=== PATIENT | male | born 1950 | race Caucasian/White ===

== ENCOUNTER → 2017-07-15 | Outpatient (CLI) | payer MEDICARE, MEDICAID, SELFPAY | PROVIDERS: Visit Provider Urology | DX: C61 Malignant neoplasm of prostate (principal); Z12.5 Encounter for screening for malignant neoplasm of prostate | CPT/HCPCS: 36415; 84153 ==

== ENCOUNTER 2017-07-21 10:23 | Outpatient (POV) | payer MEDICARE, MEDICAID, SELFPAY | END 2017-07-21 15:31 | disposition home or self-care (01) | PROVIDERS: Family Provider Family Medicine; PCP Family Medicine; Visit Provider Urology | DX: C61 Malignant neoplasm of prostate (principal) | CPT/HCPCS: 81002; 99213 ==

== ENCOUNTER → 2017-10-13 12:22 | Outpatient (CLI) | payer MEDICARE, MEDICAID, SELFPAY ==
[2017-10-13 14:17] LABS: Prostate Specific Ag Screen < 0.1 ng/mL (0.0-4.0)
== END ==
PROVIDERS: PCP Urology; Visit Provider Urology
DX: Z12.5 Encounter for screening for malignant neoplasm of prostate (principal)
CPT/HCPCS: 36415; G0103

== ENCOUNTER → 2018-01-13 09:47 | Outpatient (CLI) | payer MEDICARE, MEDICAID, SELFPAY ==
[2018-01-13 11:33] LABS: Prostate Specific Ag, Diagnost < 0.05 ng/mL (0.0-4.0)
== END ==
PROVIDERS: Visit Provider Urology
DX: C61 Malignant neoplasm of prostate (principal)
CPT/HCPCS: 36415; 84153

== ENCOUNTER → 2018-07-28 09:41 | Outpatient (CLI) | payer MEDICARE, MEDICAID, SELFPAY ==
[2018-07-28 11:35] LABS: Prostate Specific Ag, Diagnost < 0.05 ng/mL (0.0-4.0)
== END ==
PROVIDERS: Visit Provider Urology
DX: C61 Malignant neoplasm of prostate (principal)
CPT/HCPCS: 36415; 84153

== ENCOUNTER → 2019-01-25 09:03 | Outpatient (CLI) | payer MEDICARE, MEDICAID, SELFPAY ==
[2019-01-25 11:00] LABS: Prostate Specific Ag, Diagnost 0.04 ng/mL (0.0-4.0)
== END ==
PROVIDERS: Visit Provider Urology
DX: R97.20 Elevated prostate specific antigen [PSA] (principal)
CPT/HCPCS: 36415; 84153

== ENCOUNTER → 2019-07-26 12:14 | Outpatient (CLI) | payer MEDICARE, MEDICAID, SELFPAY ==
[2019-07-27 12:20] LABS: PSA, Free <0.01 ng/mL; Prostate Specific Ag <0.1 ng/mL (0.0-4.0)
== END ==
PROVIDERS: Visit Provider Urology
DX: R97.20 Elevated prostate specific antigen [PSA] (principal)
CPT/HCPCS: 36415; 84153; 84154

== ENCOUNTER → 2019-09-28 08:16 | Outpatient (CLI) | payer MEDICARE, MEDICAID, SELFPAY ==
--- NOTE | 2019-09-28 08:27 | XR_ITS ---
PROCEDURE: XR LUMBAR SPINE 6V W BENDING CLINICAL INDICATION: DDD W/ STENOSIS, LBP COMPARISON: ABDPELW/O CT ABD PELVIS W/O CONTRAST from 05/06/2016 FINDINGS: Mild lumbar scoliosis convex right. Facet arthritic changes are present from L3-L5. There is normal alignment. Mild degenerative disc disease is present in the lower thoracic spine. There is mild degenerative disc disease at L4-5. No acute fracture or dislocation. No lytic or blastic change. Flexion and extension views show no abnormal subluxation. There is mild wedge contour T12-T11 and T10 which is felt to be chronic Incidental note is made left nephrolithiasis with a 4 mm stone along the lower pole of the left kidney. There are multiple calcific densities overlying the lower pelvic region consistent with bladder calculi. Osteoarthritic changes are present in the right hip. The left hip is not well delineated. IMPRESSION: 1. Lumbar and thoracic spondylosis as detailed above 2. Left nephrolithiasis. 3. No abnormal subluxation in flexion or extension Dictated by: Teo You MD 09/28/2019 18:19 Electronically signed by Teo You MD in [facility] 09/28/2019 18:19
== END ==
PROVIDERS: PCP Family Medicine; Visit Provider Family Medicine
DX: M48.061 Spinal stenosis, lumbar region without neurogenic claudication (principal); M54.5 Low back pain
CPT/HCPCS: 72114

== ENCOUNTER → 2020-08-06 13:50 | Outpatient (CLI) | payer MEDICARE, MEDICAID, SELFPAY ==
[2020-08-06 15:59] LABS: Prostate Specific Ag, Diagnost < 0.064 ng/ml (0.0-4.0)
== END ==
PROVIDERS: Visit Provider Urology
DX: C61 Malignant neoplasm of prostate (principal)
CPT/HCPCS: 36415; 84153

== ENCOUNTER → 2021-01-07 10:03 | Outpatient (CLI) | payer MEDICARE, MEDICAID, SELFPAY ==
[2021-01-07 12:08] LABS: Blood Urea Nitrogen 21 mg/dl (9-20); Estimated Glomerular Filt Rate 66 ml/min (>60); GFR (African American) 80 ML/MIN (>60)
== END ==
PROVIDERS: Visit Provider Surgery
DX: R10.32 Left lower quadrant pain (principal)
CPT/HCPCS: 36415; 82565; 84520

== ENCOUNTER → 2021-01-11 12:41 | Outpatient (CLI) | payer MEDICARE, MEDICAID, SELFPAY ==
--- NOTE | 2021-01-11 12:42 | CT_ITS ---
PROCEDURE: CT PELVIS WO/W CON CLINICAL INDICATION: lt groin pain, possible hernia COMPARISON: CT ABDPELW/O CT ABD PELVIS W/O CONTRAST from 05/06/2016 TECHNIQUE: Axial images obtained with sagittal and coronal reformats. All CT scans at the facility use one or more dose reduction, viz: automated exposure control, ma/kV adjustment per patient size (including targeted exams where dose is matched to indication, i.e. head), or iterative reconstruction technique. FINDINGS: Current CT shows a structure in the left inguinal canal, which projects off the lateral aspect of sigmoid colon which was previously shown to be of fluid density. This structure now measures about 5 centimeters x 3 centimeters and contains multiple foci of air and a tiny amount of fluid. Findings are most consistent with a diverticular abscess. This structure does not contain bowel and is separate from the sigmoid colon itself. There is no free intraperitoneal air. Small amount of nonspecific free fluid in the pelvis. Multiple diverticula noted on the sigmoid and descending colon. There is some calcification of the visualized abdominal aorta without aneurysm. A few right renal cortical cysts again noted. 8 millimeter non-obstructing stone in the left kidney. No distended small bowel. Postop changes of prior prostatectomy. Several bladder stones are present in the base of the urinary bladder on the left, the largest measuring about 7 millimeters. Moderate amount of stool in the colon. IMPRESSION: Current exam shows a structure in the left inguinal canal projecting off the left lateral aspect of the sigmoid colon as described above, most consistent with a diverticular abscess. Multiple diverticula on the sigmoid and descending colon. Small amount of nonspecific free fluid in the pelvis. No free intraperitoneal air. A few right renal cortical cysts. 8 millimeter non-obstructing stone in the left kidney. Several bladder stones, the largest measuring about 7 millimeters. Findings were discussed by telephone with Dr. Myers on 01/11/2021 at approximately 1410 hours. Dictated by: Oh Michelle MD 01/11/2021 14:43 Oh Michelle MD in [facility] 01/11/2021 14:43
== END ==
PROVIDERS: PCP Family Medicine; Visit Provider Surgery
DX: R10.32 Left lower quadrant pain (principal)
CPT/HCPCS: 72194; Q9967

== ENCOUNTER → 2021-01-16 09:59 | Outpatient (CLI) | payer MEDICARE, MEDICAID, SELFPAY ==
[2021-01-16 10:28] LABS: Basophils # 0.1 K/mm3 (0-0.2); Basophils % 0.5 % (0.1-2.0); Eosinophils # 0.2 K/mm3 (0.0-0.4); Eosinophils % 1.8 % (0.1-12.0); Hematocrit 38.1 % (42.0-52.0); Hemoglobin 12.1 g/dL (14.1-18.0); Lymphocytes # 1.5 K/mm3 (0.7-4.5); Lymphocytes % 13.9 % (10-50); Mean Corpuscular HGB Conc 31.8 g/dL (31.8-35.4); Mean Corpuscular Hemoglobin 27.8 pg (27.0-31.2); Mean Corpuscular Volume 87.4 fl (80-94); Mean Platelet Volume 7.1 fl (7.4-10.4); Monocytes # 0.7 K/mm3 (0.1-1.0); Monocytes % 6.1 % (1.7-9.3); Neutrophils # 8.5 K/mm3 (1.8-7.8); Neutrophils % 77.7 % (37.0-80.0); Platelet Count 575 K/mm3 (142-424); Red Blood Count 4.36 M/mm3 (4.60-6.20); Red Cell Distribution Width 15.6 % (11.5-17.5)
[2021-01-16 10:54] LABS: Erythrocyte Sedimentation Rate 22 mm/hr (0-20)
[2021-01-16 11:14] LABS: C-Reactive Protein 15.5 mg/L (0-4)
== END ==
PROVIDERS: Visit Provider Surgery
DX: L02.91 Cutaneous abscess, unspecified (principal)
CPT/HCPCS: 85025; 85651; 86140

== ENCOUNTER → 2021-01-23 09:04 | Outpatient (CLI) | payer MEDICARE, MEDICAID, SELFPAY ==
[2021-01-23 09:18] LABS: Basophils % 0.3 % (0.1-2.0); Eosinophils # 0.3 K/mm3 (0.0-0.4); Eosinophils % 2.5 % (0.1-12.0); Hematocrit 37.3 % (42.0-52.0); Hemoglobin 11.8 g/dL (14.1-18.0); Lymphocytes # 1.4 K/mm3 (0.7-4.5); Lymphocytes % 12.1 % (10-50); Mean Corpuscular HGB Conc 31.6 g/dL (31.8-35.4); Mean Corpuscular Hemoglobin 27.9 pg (27.0-31.2); Mean Corpuscular Volume 88.4 fl (80-94); Mean Platelet Volume 7.5 fl (7.4-10.4); Monocytes # 0.9 K/mm3 (0.1-1.0); Monocytes % 7.3 % (1.7-9.3); Neutrophils # 9.1 K/mm3 (1.8-7.8); Neutrophils % 77.8 % (37.0-80.0); Platelet Count 547 K/mm3 (142-424); Red Blood Count 4.21 M/mm3 (4.60-6.20); White Blood Count 11.6 K/mm3 (4.8-10.8)
== END ==
PROVIDERS: Visit Provider Surgery
DX: L02.91 Cutaneous abscess, unspecified (principal)
CPT/HCPCS: 36415; 85025

== ENCOUNTER → 2021-02-05 11:39 | Outpatient (CLI) | payer MEDICARE, MEDICAID, SELFPAY ==
[2021-02-05 12:57] LABS: Blood Urea Nitrogen 15 mg/dl (9-20); Estimated Glomerular Filt Rate 95 ml/min (>60); GFR (African American) 115 ML/MIN (>60)
== END ==
PROVIDERS: Visit Provider Surgery
DX: Z01.812 Encounter for preprocedural laboratory examination (principal)
CPT/HCPCS: 36415; 82565; 84520

== ENCOUNTER → 2021-02-06 09:33 | Outpatient (CLI) | payer MEDICARE, MEDICAID, SELFPAY ==
--- NOTE | 2021-02-06 09:33 | CT_ITS ---
PROCEDURE: CT ABDOMEN PELVIS W CON CLINICAL INDICATION: Possible diverticulitis abscess vs mesh infections COMPARISON: CT ABDPELW/O CT ABD PELVIS W/O CONTRAST from 05/06/[address] PELVIS WO/W CON from 01/11/2021 TECHNIQUE: IV Contrast: 75ML Isovue 370 Oral Contrast None Axial images obtained with sagittal and coronal reformats. All CT scans at the facility use one or more dose reduction, viz: automated exposure control, ma/kV adjustment per patient size (including targeted exams where dose is matched to indication, i.e. head), or iterative reconstruction technique. FINDINGS: LOWER THORAX: Coronary artery calcification noted. There is minimal pericardial thickening posteriorly ABDOMEN & PELVIS: The liver, spleen, adrenal glands, pancreas, have an unremarkable appearance. There are bilateral renal cysts the largest on the right at 4.5 cm. An 8 mm stone is present in the lower pole of the left kidney. 3 mm stone is present in the mid polar region of the right kidney. No ureteral calculi. No hydronephrosis. There are several bladder calculi present. No intestinal obstruction or free air is apparent. No evidence of appendicitis. There is colonic diverticulosis. Once again there is noted complex structure projecting off of the anterior left lateral aspect of the sigmoid colon in the left groin region and extending into the inguinal canal. This has mixed soft tissue and gas density with a mildly thickened wall measuring up to 6 mm consistent with an abscess which may be a Magalis diverticular abscess. This extends into the left inguinal canal with some mild stranding of the fat around this abnormality. This is not significantly changed in size measuring up to 6 cm in maximum longitudinal dimension and 2.5 cm transverse. This is contiguous with the sigmoid colon and also contiguous with the left anterior aspect of the urinary bladder. The pelvic fluid has resolved compared to the previous exam No acute bony findings. IMPRESSION: Overall no significant change in what appears to represent a para diverticular abscess projecting off the sigmoid colon into the left inguinal region. This could also represent a mesh abscess with extension to the sigmoid region. The abscess also abuts the anterior medial aspect of the urinary bladder. Colonic diverticulosis Bilateral renal calculi and urinary bladder calculi. Dictated by: Teo You MD 02/06/2021 11:33 Teo You MD in [facility] 02/06/2021 11:33
== END ==
PROVIDERS: PCP Family Medicine; Visit Provider Surgery
DX: R93.5 Abnormal findings on diagnostic imaging of other abdominal regions, including retroperitoneum (principal)
CPT/HCPCS: 74177; Q9967

== ENCOUNTER → 2021-05-29 14:11 | Outpatient (CLI) | payer MEDICARE, MEDICAID, SELFPAY ==
[2021-05-29 15:08] LABS: Anion Gap 8.8 mEq/L (5-15); Blood Urea Nitrogen 8 mg/dl (9-20); Calcium 9.1 mg/dl (8.4-10.2); Carbon Dioxide 28 mmol/L (22.0-30.0); Chloride 108 mmol/L (98-107); Estimated Glomerular Filt Rate 59 ml/min (>60); GFR (African American) 72 ML/MIN (>60); Glucose 92 mg/dl (74-100); Potassium 4.8 mmoL/L (3.5-5.1); Sodium 140 mmol/L (136-145)
== END ==
PROVIDERS: Visit Provider Internal Medicine Geriatric Medicine
DX: K85.92 Acute pancreatitis with infected necrosis, unspecified (principal); L89.152 Pressure ulcer of sacral region, stage 2
CPT/HCPCS: 80048

== ENCOUNTER 2021-06-17 14:22 | Observation (INO) | payer MEDICARE, MEDICAID, SELFPAY ==
[2021-06-17] VITALS (10 sets, daily range): BP systolic 96–145; BP diastolic 56–91; PULSE 86–116; RESP 18; TEMP 36.6–36.9; O2SAT 96–99; BMI 21.5; BMI 22.1
--- NOTE | 2021-06-17 15:03 | CT_ITS ---
PROCEDURE INFORMATION: Exam: CT Abdomen And Pelvis With Contrast Exam date and time: 06/17/2021 3:03 PM Age: 71 years old Clinical indication: Abdominal pain; Generalized; Additional info: Abd pain TECHNIQUE: Imaging protocol: Computed tomography of the abdomen and pelvis with contrast. Radiation optimization: All CT scans at this facility use at least one of these dose optimization techniques: automated exposure control; mA and/or kV adjustment per patient size (includes targeted exams where dose is matched to clinical indication); or iterative reconstruction. Contrast material: ISOVUE; Contrast volume: 70 ml; Contrast route: IV; COMPARISON: CT ABDOMEN PELVIS W CON 02/06/2021 9:51 AM FINDINGS: Liver: Normal. No mass. Gallbladder and bile ducts: Normal. No calcified stones. No ductal dilation. Pancreas: Normal. No ductal dilation. Spleen: Normal. No splenomegaly. Adrenal glands: Normal. No mass. Kidneys and ureters: 10 x 8 x 8 mm stone in the mid to distal left ureter. Moderate hydronephrosis. Again noted are simple renal cortical cysts. Stomach and bowel: An anastomosis at the rectosigmoid junction is new since the previous study. There is much less diverticular disease present as compared to the prior study. Inflammatory mural thickening of the colon are new. Findings are present from cecum to rectum. Appendix: No evidence for appendicitis. Intraperitoneal space: Small amount of free fluid in the abdomen and pelvis. Vasculature: Unremarkable. No abdominal aortic aneurysm. Lymph nodes: Unremarkable. No enlarged lymph nodes. Urinary bladder: Again noted are several bladder stones. The bladder is decompressed with a Gilman catheter. Reproductive: Unremarkable as visualized. Bones/joints: Unremarkable. No acute fracture. Soft tissues: Unremarkable. IMPRESSION: 1. Diffuse inflammatory changes of the colon. Findings may represent infectious colitis or inflammatory bowel disease. 2. Large stone in the mid to distal left ureter with hydronephrosis.
[2021-06-17 15:24] LABS: Basophils # 0.1 K/mm3 (0-0.2); Basophils % 0.5 % (0.1-2.0); Eosinophils # 0.1 K/mm3 (0.0-0.4); Eosinophils % 0.4 % (0.1-12.0); Hematocrit 37.4 % (42.0-52.0); Hemoglobin 11.5 g/dL (14.1-18.0); Lymphocytes # 1.3 K/mm3 (0.7-4.5); Mean Corpuscular HGB Conc 30.8 g/dL (31.8-35.4); Mean Corpuscular Hemoglobin 29.3 pg (27.0-31.2); Mean Platelet Volume 8.3 fl (7.4-10.4); Monocytes # 0.7 K/mm3 (0.1-1.0); Monocytes % 3.7 % (1.7-9.3); Neutrophils # 16.2 K/mm3 (1.8-7.8); Neutrophils % 88.4 % (37.0-80.0); Red Blood Count 3.93 M/mm3 (4.60-6.20); Red Cell Distribution Width 17.1 % (11.5-17.5); White Blood Count 18.3 K/mm3 (4.8-10.8)
[2021-06-17 15:25] LABS: Platelet Count 1005 K/mm3 (142-424)
[2021-06-17 15:27] LABS: Microscopic, Urine URINE MICROSCOPIC (MICROSCOPIC)
[2021-06-17 15:27] LABS: MANUAL DIFFERENTIAL MANUAL DIFFERENTIAL (MANUAL DIFF)
[2021-06-17 15:28] LABS: Alanine Aminotransferase 7 U/L (12-78); Albumin Level 2.5 g/dl (3.5-5.0); Albumin/Globulin Ratio 0.8 (1.1-1.8); Alkaline Phosphatase 235 U/L (38-126); Amylase 35 U/L (30-110); Anion Gap 9.8 mEq/L (5-15); Aspartate Amino Transferase 34 U/L (17-59); Bilirubin,Total 0.8 mg/dl (0.2-1.3); Blood Urea Nitrogen 30 mg/dl (9-20); Carbon Dioxide 22 mmol/L (22.0-30.0); Chloride 108 mmol/L (98-107); Creatinine Clearance Estimated 36 mL/min (50-200); Estimated Glomerular Filt Rate 50 ml/min (>60); GFR (African American) 60 ML/MIN (>60); Glucose 99 mg/dl (74-100); Lipase 20 U/L (23-300); Potassium 4.8 mmoL/L (3.5-5.1); Sodium 135 mmol/L (136-145); Total Protein,Serum 5.5 g/dl (6.3-8.2)
[2021-06-17 15:28] LABS: Appearance,Urine CLEAR (Clear); Bilirubin,Urine Negative (Negative); Blood, Urine Negative (Negative); Color,Urine DK YELLOW (Yellow); Glucose,Urine (UA) Negative (Negative); Ketones,Urine Negative (Negative); Leukocyte Esterase,Urine TRACE (Negative); Nitrate,Urine Negative (Negative); PH,Urine 5.5 (5.0-8.5); Protein,Urine Negative (Negative); Specific Gravity, Urine 1.025 (1.005-1.030); Urobilinogen,Urine 0.2 EU/dl (0.2)
[2021-06-17 15:42] LABS: Bacteria,Urine Trace /lpf; Squamous Epithelial Cell,Urine Occasional #/hpf (0-5)
--- NOTE | 2021-06-17 15:44 | PC.NURSE ---
Pt to CT
[2021-06-17 15:55] LABS: Hypochromasia 2+; Lymphocytes % 11 % (10-50); Monocytes % 6 % (2-9); Neutrophils % 80 % (42-76); Platelet Estimate Marked Increase; Total Cells Counted 100
[2021-06-17 15:56] LABS: Erythrocyte Sedimentation Rate 18 mm/hr (0-20)
--- NOTE | 2021-06-17 18:04 | PC.NURSE ---
Stage 3 bed sore noted to coccyx.
--- NOTE | 2021-06-17 19:51 | HMH.EDGENADL ---
ED Disposition Clinical Impression: Ureteral stone with hydronephrosis, Thrombocythemia, Colitis Disposition: Admitted As Inpatient Condition on Discharge: Fair - Critical Care Critical Care Time: No Attestation: On 06/17/21, the high probability of a clinically significant, sudden or life threatening deterioration of the following system(s) required my full and direct attention, intervention and personal management. The time I documented below is in addition to time spent performing reported procedures but includes the following listed in this critical care notation. Medical Decision Making - Chaz Inquiry Pt receiving controlled substance: No Vital Signs: 06/17/21 15:00 Pulse Rate [Apical] 116 H Respiratory Rate 18 Blood Pressure [Right Arm] 145/72 H Blood Pressure Mean [Right Arm] 96 02 Sat by Pulse Oximetry 96 - Lab Data Lab Results 06/17/21 15:12: WBC 18.3 H, RBC 3.93 L, Hgb 11.5 L, Hct 37.4 L, MCV 95.0 H, MCH 29.3, MCHC 30.8 L, RDW 17.1, Plt Count 1005 H*, MPV 8.3, Neut % (Auto) 88.4 H, Lymph % (Auto) 7.0 L, [place] % (Auto) 3.7, Eos % (Auto) 0.4, Baso % (Auto) 0.5, Neut # (Auto) 16.2 H, Lymph # (Auto) 1.3, [place] # (Auto) 0.7, Eos # (Auto) 0.1, Baso # (Auto) 0.1, Total Counted 100, Neutrophils % (Manual) 80 H, Band Neutrophils % 3.0, Lymphocytes % (Manual) 11, Monocytes % (Manual) 6, Platelet Estimate Marked increase, Hypochromasia 2+ 06/17/21 15:12: Sodium 135 L, Potassium 4.8, Chloride 108 H, Carbon Dioxide 22, Anion Gap 9.8, BUN 30 H, Creatinine 1.40 H, Estimated Creat Clear 36, Estimated GFR 50 L, Est GFR ( Amer) 60, Glucose 99, Calcium 9.0, Total Bilirubin 0.8, AST 34, ALT 7 L, Alkaline Phosphatase 235 H, C-Reactive Protein 79.0 H, Total Protein 5.5 L, Albumin 2.5 L, Globulin 3.0, Albumin/Globulin Ratio 0.8 L, Amylase 35, Lipase 20 L 06/17/21 15:12: ESR 18 06/17/21 15:21: Urine Color Dk yellow, Urine Appearance Clear, Urine pH 5.5, Ur Specific [place] 1.025, Urine Protein Negative, Urine Glucose (UA) Negative, Urine Ketones Negative, Urine Blood Negative, Urine Nitrate Negative, Urine Bilirubin Negative, Urine Urobilinogen 0.2, Ur Leukocyte Esterase Trace, Urine WBC 10-20, Ur Squamous Epith Cells Occasional, Urine Bacteria Trace Result diagrams: 06/17/21 15:12 06/17/21 15:12 Orders (Tests/Meds): ED MEDICATIONS Generic Name Dose Route Start Last Admin Trade Name Freq PRN Reason Stop Dose Admin Piperacillin Sod/Tazobactam 50 mls @ 100 mls/hr 06/17/21 18:45 06/17/21 19:34 Sod 3.375 gm/ Sodium Chloride IV 07/01/21 18:44 100 mls/hr Q8H TRUMAN Administration Discontinued Medications Generic Name Dose Route Start Last Admin Trade Name Freq PRN Reason Stop Dose Admin Sodium Chloride 1,000 mls @ 999 mls/hr 06/17/21 15:15 06/17/21 15:41 Sod Chlor 0.9% 1000ml Bag IV 06/17/21 16:15 999 mls/hr .Q1H1M TRUMAN Administration Metronidazole 500 mg in 100 mls @ 100 mls/hr 06/17/21 18:43 06/17/21 19:19 Flagyl 500mg/100ml Ivpb IV 06/17/21 19:42 100 mls/hr ONCE ONE Administration Iopamidol 75 ml 06/17/21 15:51 06/17/21 15:52 Iopamidol-370 (76%);100ml Bottle IV 06/17/21 15:52 75 ml ONCE ONE Administration Sodium Chloride 10 ml 06/17/21 15:51 06/17/21 15:52 Sodium Chloride 0.9% 10ml Syr (Rad Only) IV 06/17/21 15:52 10 ml ONCE ONE Administration ORDERS Category Date Time Status Urine Culture Stat Micro 06/17/21 15:21 Received Medical Decision Narrative: DDx includes but not limited to pancreatitis, intraabdominal infection, ДМИТРИЙ, electrolyte abnormality. HDS, NAD, tired appearing. GCS 15. Tachycardic, afebrile. Given IVF bolus here in ED with improvement of tachycardia. wbc 18k. Of note, plt 1005k. CT shows diffuse colonic wall thickening/colitis, and left ureteral stone causing hydronephrosis. Creatinine 1.4. Given zosyn and flagyl here for intraabdominal infection. In NAD on reassessment. Urology consulted regarding ureteral stone with hydron
--- NOTE | 2021-06-17 23:04 | PC.NURSE ---
Report called to [facility] at this time
--- NOTE | 2021-06-17 23:48 | PC.NURSE ---
patient up to floor via stretcher @ this time.
[2021-06-18] VITALS (26 sets, daily range): BP systolic 89–115; BP diastolic 52–73; PULSE 83–109; RESP 14–17; TEMP 36.3–43; O2SAT 93–100; BMI 22.1
[2021-06-18 00:18] LABS: Coronavirus 19, PCR Not Detected (NotDetected); Influenza A, PCR Not Detected (NotDetected); Influenza B, PCR Not Detected (NotDetected)
--- NOTE | 2021-06-18 00:57 | PC.WOUNDNOTE ---
stage 2 to coccyx
--- NOTE | 2021-06-18 05:07 | PC.NURSE ---
pt admitted this shift, noted pt with loose watery stools and incontinent, pt uses brief. pt arrived with a stage 2 decubitis ulcer to coccyx area, pictures taken, pt complains of abdominal tenderness, f/c to bsd. VSS, consult with urology relating to renal calculi today.
--- NOTE | 2021-06-18 07:32 | HMH.HP ---
*Admission Date: 06/18/21 *Chief complaint: Abdominal pain *History of present illness: 71-year-old male presented to the emergency department for increasing left lower quadrant abdominal pain as well as a milder pain in the epigastrium. Patient been experiencing this pain for several weeks and this was believed to be related to recent surgery to remove mesh from the left inguinal area that had developed an abscess. This surgery was in mid March and was complicated by development of pleural effusions postoperatively and C. difficile colitis. Initial surgery was at the [facility] and subsequent hospitalization was also at [facility] where he had chest tubes and completed a 6 weeks course of vancomycin for his C. difficile. Patient rehabilitated at [facility] before returning home. Patient has been having left lower quadrant pain this entire time although the pain has gradually increased. He presented to the emergency department. He denied hematuria. Patient does report multiple small loose stools daily. He denies fevers or chills. In the emergency department a CT scan showed inflammatory changes of the colon consistent with colitis and an obstructing left ureteral stone. Patient was admitted after being given IV antibiotics and urologic consultation has been ordered. [facility] History I have reviewed the patient's past medical history: Yes Medical History: Reports:: Cancer, Hyperlipidemia, Hypertension Denies:: Diabetes Mellitus Type 1, Diabetes Mellitus Type 2, MRSA *Have you ever received a pneumonia vaccine?: Yes *Have you received a flu vaccine this season?: Yes Other Medical History: Reports: Arthritis, Thyroid Disease Other Surgeries: Yes: Colonoscopy, Hernia Repair, Ureter Stent, Other (Left inguinal mesh removal) Amputation: No Fractures: No - *Social History Last grade of school completed: 7th or 8th Smoking Status: Never smoker Tobacco Type: smokeless tobacco Alcohol Intake: never Substance Use Type: denies use *Occupational Status:: retired Household Members: spouse *Travel in the last 8 weeks: None Family Hx:: No significant family history Review of Systems - Constitutional Reports anorexia, Reports lack of energy - Eyes Denies change in vision - ENT Denies bleeding gums, Denies ear discharge - *Cardiovascular Denies chest pain at rest, Denies chest pain with activity - *Respiratory Denies chest congestion, Denies cough, Denies shortness of breath - *Gastrointestinal Denies belching, Denies bloating, Denies heartburn - *Genitourinary Denies blood in urine - *Musculoskeletal Reports joint pain - Integumentary/Breasts Reports bleeding lesions Meds Home Medications Medication Instructions Recorded Confirmed Type aspirin 81 mg tablet,delayed 81 mg PO DAILY tab 10/20/17 06/18/21 History release fenofibrate nanocrystallized 145 145 mg PO DAILY tab 10/20/17 06/18/21 History mg tablet lisinopril 40 mg tablet 40 mg PO DAILY tab 10/20/17 06/18/21 History meloxicam 15 mg tablet 15 mg PO DAILY tab 10/20/17 06/18/21 History multivit and minerals-ferrous 15 ml PO QHS 10/20/17 06/18/21 History gluconate 9 mg iron/15 mL oral liquid levothyroxine 88 mcg tablet 88 mcg PO DAILY tab 08/06/20 06/18/21 History Allergies Allergy/AdvReac Type Severity Reaction Status Date / Time Sulfa (Sulfonamide Allergy Unknown Verified 06/18/21 00:35 Antibiotics) Exam Vital signs and Labs for Last 24 Hours: Temp Pulse Resp BP Pulse Ox 98.4 F 89 16 108/66 L 93 L 06/18/21 03:59 06/18/21 03:59 06/18/21 03:59 06/18/21 03:59 06/18/21 03:59 Laboratory Results - last 24 hr 06/17/21 00:12: SARS-CoV-2 (PCR) Not detected, Influenza A Untype (PCR) Not detected, Influenza Type B (PCR) Not detected 06/17/21 15:12: WBC 18.3 H, RBC 3.93 L, Hgb 11.5 L, Hct 37.4 L, MCV 95.0 H, MCH 29.3, MCHC 30.8 L, RDW 17.1, Plt Count 1005 H*, MPV 8.3, Neut % (Auto) 88.4 H, L
[2021-06-18 07:44] LABS: Adenovirus F 40/41, stool Not Detected (NotDetected); Astrovirus Not Detected (NotDetected); Campylobacter Not Detected (NotDetected); Cryptosporidium Not Detected (NotDetected); Cyclospora Cayetanesis Not Detected (NotDetected); Entamoeba histolytica Not Detected (NotDetected); Enteroaggregative E coli Not Detected (NotDetected); Enteropathogenic E coli Not Detected (NotDetected); Enterotoxigenic E coli Not Detected (NotDetected); Giardia lamblia Not Detected (NotDetected); Norovirus Not Detected (NotDetected); Plesimonas Shigalloides, PCR Not Detected (NotDetected); Rotavirus A Not Detected (NotDetected); Salmonella, PCR Not Detected (NotDetected); Sapovirus Not Detected (NotDetected); Shiga-like toxin E coli Not Detected (NotDetected); Shigella Enterovasive E coli Not Detected (NotDetected); Vibrio Cholerae Not Detected (NotDetected); Vibrio, PCR Not Detected (NotDetected); Yersinia Entercolitica, PCR Not Detected (NotDetected)
--- NOTE | 2021-06-18 07:44 | HMH.PHAVTE ---
[facility] Pharmacy VTE Monitoring - Patient Demographics Admission date: 06/18/21 Report Date: 06/18/21 Time: 07:44 Allergies/Adverse Reactions: Patient Allergies Sulfa (Sulfonamide Antibiotics) Allergy (Unknown, Verified 06/18/21 00:35) Height: 1.57 m Weight: 54.522 kg Patient Problems: Current Active Problems Ureteral stone with hydronephrosis (Acute) Thrombocythemia (Acute) Colitis (Acute) - VTE Risk Labs: VTE Related Lab Results Hgb 11.5 g/dL (14.1-18.0) L 06/17/21 15:12 Hct 37.4 % (42.0-52.0) L 06/17/21 15:12 Plt Count 1005 K/mm3 (142-424) H* 06/17/21 15:12 BUN 30 mg/dl (9-20) H 06/17/21 15:12 Creatinine 1.40 mg/dl (0.66-1.25) H 06/17/21 15:12 Estimated Creat Clear 36 mL/min (50-200) 06/17/21 15:12 Was VTE Risk Assessment Performed: Yes VTE Score: 5 VTE Risk Level: Low Risk Clinical Trial Participant: No - Prophylaxis VTE Prophylaxis Ordered?: Yes Types of VTE Prophylaxis: TEDS Knee High Location of Applied Device: Bilateral Lower Extremeties
[2021-06-18 08:46] LABS: Basophils % 0.3 % (0.1-2.0); Eosinophils % 0.1 % (0.1-12.0); Hematocrit 34.9 % (42.0-52.0); Hemoglobin 10.6 g/dL (14.1-18.0); Lymphocytes % 8.6 % (10-50); Mean Corpuscular HGB Conc 30.2 g/dL (31.8-35.4); Mean Corpuscular Volume 95.8 fl (80-94); Mean Platelet Volume 8.7 fl (7.4-10.4); Monocytes # 0.5 K/mm3 (0.1-1.0); Monocytes % 4.1 % (1.7-9.3); Neutrophils # 10.2 K/mm3 (1.8-7.8); Neutrophils % 86.9 % (37.0-80.0); Platelet Count 929 K/mm3 (142-424); Red Blood Count 3.65 M/mm3 (4.60-6.20); Red Cell Distribution Width 17.3 % (11.5-17.5); White Blood Count 11.8 K/mm3 (4.8-10.8)
[2021-06-18 08:54] LABS: MANUAL DIFFERENTIAL MANUAL DIFFERENTIAL (MANUAL DIFF)
[2021-06-18 09:04] LABS: Albumin/Globulin Ratio 0.7 (1.1-1.8); Alkaline Phosphatase 198 U/L (38-126); Anion Gap 10.5 mEq/L (5-15); Aspartate Amino Transferase 27 U/L (17-59); Bilirubin,Total 0.7 mg/dl (0.2-1.3); Blood Urea Nitrogen 25 mg/dl (9-20); Calcium 8.5 mg/dl (8.4-10.2); Carbon Dioxide 20 mmol/L (22.0-30.0); Chloride 111 mmol/L (98-107); Creatinine Clearance Estimated 34 mL/min (50-200); Estimated Glomerular Filt Rate 46 ml/min (>60); GFR (African American) 56 ML/MIN (>60); Globulin 2.7 g/dL (1.3-3.2); Glucose 65 mg/dl (74-100); Potassium 4.5 mmoL/L (3.5-5.1); Sodium 137 mmol/L (136-145); Total Protein,Serum 4.7 g/dl (6.3-8.2)
[2021-06-18 09:11] LABS: Alanine Aminotransferase < 4 U/L (12-78)
[2021-06-18 09:29] LABS: Anisocytosis 1+; Lymphocytes % 8 % (10-50); Monocytes % 5 % (2-9); Neutrophils % 87 % (42-76); Platelet Estimate Normal; Total Cells Counted 100
[2021-06-18 09:30] LABS: Hypochromasia 2+; Macrocytosis 1+
--- NOTE | 2021-06-18 09:50 | HMH.PHAINT ---
clarified home med list using list from Dr Munguia' office and [facility]
[2021-06-18 09:55] LABS: Clostridium Difficile A/B, PCR Detected (NotDetected)
--- NOTE | 2021-06-18 10:21 | PC.NURSE ---
SPOKE WITH KEITH HILL IN PRE-OP REGARDING PT GLUCOSE LEVEL. ORDER PER ANESTHESIA TO GIVE HALF CUP OF JUICE AT THIS TIME.
--- NOTE | 2021-06-18 11:50 | HMH.CONS ---
*Admission Date: 06/18/21 *Reason for consult:: Left ureteral stone with obstruction *History of present illness: Patient is a 71-year-old white female with history of prostate cancer and colon cancer phlebitis recent prolonged hospitalization for complications of left inguinal mesh explantation. Into the emergency room last evening complaints of left lower quadrant pain. Patient gives a several week history of the left lower quadrant pain. He had a prolonged hospital stay at [facility] for complications after removing some mesh from the previous hernia repair. He had a coronal peel before returning home. Patient has had some associated nausea. A CT scan shows a 10 x 8 mm stone in the mid ureter with moderate hydronephrosis. There is also diffuse inflammatory changes of the colon. Patient's white count is elevated to 18.3. Creatinine is elevated to 1.4. Patient had his prostate removed for prostate cancer several years ago with PSAs of 0. [facility] History Medical History: Reports:: Cancer, Hyperlipidemia, Hypertension Denies:: Diabetes Mellitus Type 1, Diabetes Mellitus Type 2, MRSA *Have you ever received a pneumonia vaccine?: Yes *Have you received a flu vaccine this season?: Yes Other Medical History: Reports: Arthritis, Thyroid Disease Other Surgeries: Yes: Colonoscopy, Hernia Repair, Ureter Stent, Other (Left inguinal mesh removal) Amputation: No Fractures: No - *Social History Last grade of school completed: 7th or 8th Smoking Status: Never smoker Tobacco Type: smokeless tobacco Alcohol Intake: never Substance Use Type: denies use *Occupational Status:: retired Household Members: spouse *Travel in the last 8 weeks: None Family Hx:: No significant family history Review of Systems - Review of Systems Review of systems:: pertinent systems reviewed and negative unless documented below Meds Home Medications Medication Instructions Recorded Confirmed Type aspirin 81 mg tablet,delayed 81 mg PO DAILY tab 10/20/17 06/18/21 History release fenofibrate nanocrystallized 145 145 mg PO DAILY tab 10/20/17 06/18/21 History mg tablet meloxicam 15 mg tablet 15 mg PO DAILY tab 10/20/17 06/18/21 History levothyroxine 88 mcg tablet 88 mcg PO DAILY tab 08/06/20 06/18/21 History Amlodipine Besylate/Benazepril 1 cap PO DAILY 06/18/21 06/18/21 History [Amlodipine-Benazepril 5-40 mg] Lactobacillus Acidophilus/Fos 1 tab PO DAILY 06/18/21 06/18/21 History [Acidophilus Probiotic Tablet] Pnv No.95/Ferrous Fum/Folic AC 1 tab PO HS 06/18/21 06/18/21 History [ Caplet] Tamsulosin HCl [Flomax 0.4mg 0.4 mg PO HS 06/18/21 06/18/21 History capsule] Allergies Allergy/AdvReac Type Severity Reaction Status Date / Time Sulfa (Sulfonamide Allergy Unknown Verified 06/18/21 00:35 Antibiotics) Exam Vital signs and Labs for Last 24 Hours: Temp Pulse Resp BP Pulse Ox 98.0 F 84 14 115/60 97 06/18/21 08:00 06/18/21 08:00 06/18/21 08:00 06/18/21 08:00 06/18/21 08:00 Laboratory Results - last 24 hr 06/17/21 00:12: SARS-CoV-2 (PCR) Not detected, Influenza A Untype (PCR) Not detected, Influenza Type B (PCR) Not detected 06/17/21 15:12: WBC 18.3 H, RBC 3.93 L, Hgb 11.5 L, Hct 37.4 L, MCV 95.0 H, MCH 29.3, MCHC 30.8 L, RDW 17.1, Plt Count 1005 H*, MPV 8.3, Neut % (Auto) 88.4 H, Lymph % (Auto) 7.0 L, [place] % (Auto) 3.7, Eos % (Auto) 0.4, Baso % (Auto) 0.5, Neut # (Auto) 16.2 H, Lymph # (Auto) 1.3, [place] # (Auto) 0.7, Eos # (Auto) 0.1, Baso # (Auto) 0.1, Total Counted 100, Neutrophils % (Manual) 80 H, Band Neutrophils % 3.0, Lymphocytes % (Manual) 11, Monocytes % (Manual) 6, Platelet Estimate Marked increase, Hypochromasia 2+ 06/17/21 15:12: Sodium 135 L, Potassium 4.8, Chloride 108 H, Carbon Dioxide 22, Anion Gap 9.8, BUN 30 H, Creatinine 1.40 H, Estimated Creat Clear 36, Estimated GFR 50 L, Est GFR ( Amer) 60, Glucose 99, Calcium 9.0, Total Bilirubin 0.8, AST 34, ALT 7 L, Alkaline Ph
--- NOTE | 2021-06-18 12:01 | HMH.ANESCL ---
[facility] Anesthesia Checklist - Patient Identification Patient Identification: Arm Band, Verbal (Name & ) - Structural Data Admitted From: Inpatient Planned Operative Procedure/s: Left Ureteroscopy Consent for Planned Operative Procedure(s) Verified: Yes Verified Documents: Surgical Consent - NPO Status Verified Time NPO: 09:00 - Chart Verification Results Verified: CBC, BMP - Cardiovascular Assessment Heart Sounds: S1 & S2 - Airway Assessment C-Spine Mobility Assessed: Yes TMJ Mobility Assessed: Yes Dentition: Partials - Neurological Assessment Level of Consciousness: Awake, Alert, Appropriate - Anesthesia Plan Anesthesia Risk discussed: Yes ASA Class: III Anesthesia Type: General [facility] History I have reviewed the patient's past medical history: Yes Medical History: Reports:: Cancer, Hyperlipidemia, Hypertension Denies:: Diabetes Mellitus Type 1, Diabetes Mellitus Type 2, MRSA *Have you ever received a pneumonia vaccine?: Yes *Have you received a flu vaccine this season?: Yes Other Medical History: Reports: Arthritis, Thyroid Disease Anesthesia experience/problems:: none Other Surgeries: Yes: Colonoscopy, Hernia Repair, Ureter Stent, Other (Left inguinal mesh removal) Amputation: No Fractures: No - *Social History Last grade of school completed: 7th or 8th Smoking Status: Never smoker Tobacco Type: smokeless tobacco Alcohol Intake: never Substance Use Type: denies use *Occupational Status:: retired Household Members: spouse *Travel in the last 8 weeks: None Family Hx:: No significant family history
--- NOTE | 2021-06-18 14:20 | XR_ITS ---
PROCEDURE: XR KUB CLINICAL INDICATION: LEFT STONE EXTRACTION AND STENT PLACEMENT COMPARISON: No exams were available for comparison FINDINGS: Fluoroscopy time: 42 seconds. Status post left ureteral stent placement which appears in satisfactory position. Two images are submitted with the C-arm. IMPRESSION: Status post left ureteral stent placement Dictated by: Teo You MD 06/18/2021 14:23 Teo You MD in [facility] 06/18/2021 14:23
--- NOTE | 2021-06-18 14:27 | P.PN_ITS ---
[facility] Anesthesia Record Part I Intake, IV Amount: 1,000 Estimated blood loss (mL): 0 Urine output (mL): 0 Blood Products used (#): none Blood Pressure: 89/52 SaO2: 98 Pulse Rate: 109 Respiratory Rate: 16 Temperature: 97.9 F Patient is:: Drowsy, Stable Stable to PACU at:: 14:25
--- NOTE | 2021-06-18 14:51 | HMH.OPNOTE ---
Date of procedure: 06/18/21 Pre-op Diagnosis:: 1 cm left ureteral stone Post-op Diagnosis:: 1 cm left ureteral stone, multiple bladder stones. Procedure performed:: Left ureteroscopy, laser lithotripsy, stone extraction and left stent placement/laser lithotripsy of multiple bladder stones and evacuation of bladder stones. Surgeon:: Manjit Gauthier MD SPINNING SUPERVISOR:: Ron Saha Anesthesia: LMA Estimated blood loss (mL): 0 Clinical Note:: 71-year-old white male with multiple medical problems a several week history of left lower quadrant pain and left flank pain. CT scan shows a 1 cm left mid ureteral stone and multiple bladder diverticula. Operative findings:: 1 cm left ureteral stone and multiple bladder stones. Operative note:: Patient taken to the operating room after informed consent was obtained. He was placed on the operating room table in the supine position and general anesthesia administered. He had been on preoperative IV antibiotics. He is being treated currently for C. difficile colitis. He was placed into the dorsal lithotomy position and prepped and draped in the standard surgical fashion. Gilman catheter was removed prior to prepping and draping. A 22 Maximo passed into the urethra and into the bladder. The bladder showed moderate trabeculation and multiple bladder stones were noted. The ureteral orifices in their normal anatomic position. A 550 nm laser fiber was passed through the scope and the stones were broken up into small fragments and we then irrigated the fragments out of the bladder. We then passed a guidewire into the left ureteral orifice and it passed by a distal ureteral stone and into the left renal pelvis. There was no evidence of any pyelonephrosis so we proceeded with ureteroscopy. The semirigid ureteroscope passed into the left ureteral orifice after removing the cystoscope. Scope passed up to the level of the stone and a 200 nm laser fiber was used to fragment the stone into smaller pieces. A 1.9 Brazilian stone basket was then used to basket all the fragments out of the left ureter. The left ureter was narrow distally and a couple of the stone fragments get hung up and the laser fiber was passed back into the ureter while the stone was engaged and the stone was broken up into smaller pieces. All significant stone fragments were removed. The ureteroscope was then removed and the cystoscope was replaced over the guidewire and a 4.8 x 24 Brazilian stent was passed over the wire and the wire removed. A good curl was noted proximally and distally. String was left on for later removal. Gilman catheter was replaced. Patient tolerated procedure well there are no complications. Condition: stable Disposition: PACU Specimens:: Stone fragments Complications:: None
--- NOTE | 2021-06-18 15:47 | SUR.PHASEI ---
1520- report called to armando andrews on medsur floor at this time. 1523- pt left in stable condition with armando andrews at this time.
--- NOTE | 2021-06-18 16:15 | HMH.ANESII ---
[facility] Anesthesia Record Part II Discharge Time: 15:20 Destination: Medical Surgical Department PACU nurse assessment reviewed?: Yes Patient Condition:: Good Anesthesia Complications:: None Swallowing reflex intact?: Yes Cyanosis?: No Blood Pressure: 100/65 Pulse Rate: 87 Temperature: 97.9 F Mental Status: Alert & Oriented Pain level:: 0 Nausea and/or vomitting:: None Intake, IV Amount: 0
--- NOTE | 2021-06-18 20:26 | PC.NURSE ---
dsg placed to sacral area open area noted to coccyx. tolerating ra well. medicated once for pain per mar with good effectiveness.
[2021-06-19 04:00] VITALS: BP 90/62; PULSE 88; RESP 17; TEMP 36.7; O2SAT 99
[2021-06-19 05:09] VITALS: BMI 21.6
[2021-06-19 06:53] LABS: Basophils % 0.4 % (0.1-2.0); Eosinophils # 0.1 K/mm3 (0.0-0.4); Eosinophils % 0.7 % (0.1-12.0); Hematocrit 31.6 % (42.0-52.0); Lymphocytes # 1.4 K/mm3 (0.7-4.5); Lymphocytes % 13.7 % (10-50); Mean Corpuscular HGB Conc 30.1 g/dL (31.8-35.4); Mean Corpuscular Hemoglobin 28.4 pg (27.0-31.2); Mean Corpuscular Volume 94.4 fl (80-94); Mean Platelet Volume 7.9 fl (7.4-10.4); Monocytes # 0.4 K/mm3 (0.1-1.0); Neutrophils # 8.1 K/mm3 (1.8-7.8); Neutrophils % 81.2 % (37.0-80.0); Platelet Count 903 K/mm3 (142-424); Red Blood Count 3.35 M/mm3 (4.60-6.20); Red Cell Distribution Width 17.3 % (11.5-17.5)
[2021-06-19 06:59] LABS: Anion Gap 7.4 mEq/L (5-15); Blood Urea Nitrogen 26 mg/dl (9-20); Calcium 8.2 mg/dl (8.4-10.2); Carbon Dioxide 23 mmol/L (22.0-30.0); Chloride 111 mmol/L (98-107); Creatinine Clearance Estimated 31 mL/min (50-200); Estimated Glomerular Filt Rate 43 ml/min (>60); GFR (African American) 52 ML/MIN (>60); Glucose 91 mg/dl (74-100); Potassium 4.4 mmoL/L (3.5-5.1); Sodium 137 mmol/L (136-145)
[2021-06-19 07:24] LABS: Hemoglobin 9.5 g/dL (14.1-18.0)
--- NOTE | 2021-06-19 07:26 | HMH.ACPN2 ---
Internal Medicine - PN: Subj *Date: 06/19/21 *Time: 07:26 Interval history: Patient has no new complaints. He reports soreness in the left lower quadrant this morning. Exam Vital signs and Labs for Last 24 Hours: Temp Pulse Resp BP Pulse Ox 98.0 F 88 17 90/62 L 99 06/19/21 04:00 06/19/21 04:00 06/19/21 04:00 06/19/21 04:00 06/19/21 04:00 Laboratory Results - last 24 hr 06/18/21 06:32: Stl Aeromonas (PCR) Not detected, Stl C. cayetanensis PCR Not detected, Stool Rotavirus (PCR) Not detected, Stl Adenov F 40/41 PCR Not detected, Stool Astrovirus (PCR) Not detected, Stool Campylobacter PCR Not detected, Stl C.difficile Tox PCR Detected A, Stool Cryptosporidium PCR Not detected, Stl E.coli Shiga Tox PCR Not detected, Stool E coli O157 PCR Not detected, Stl Enterotoxigenic E PCR Not detected, Stool EPEC (PCR) Not detected, Stool EAEC (PCR) Not detected, Stl E. histolytica PCR Not detected, Stool Giardia Lamblia PCR Not detected, Stool Salmonella PCR Not detected, Stool Sapovirus (PCR) Not detected, Stl P. shigelloides PCR Not detected, Stl Shigella/EIEC PCR Not detected, St Y.enterocolitica PCR Not detected, Stool Vibrio (PCR) Not detected, Stl Vibrio cholerae PCR Not detected, Stl Norovirus GI/GII PCR Not detected 06/18/21 08:12: WBC 11.8 H D, RBC 3.65 L, Hgb 10.6 L, Hct 34.9 L, MCV 95.8 H, MCH 29.0, MCHC 30.2 L, RDW 17.3, Plt Count 929 H*, MPV 8.7, Neut % (Auto) 86.9 H, Lymph % (Auto) 8.6 L, [place] % (Auto) 4.1, Eos % (Auto) 0.1, Baso % (Auto) 0.3, Neut # (Auto) 10.2 H, Lymph # (Auto) 1.0, [place] # (Auto) 0.5, Eos # (Auto) 0.0, Baso # (Auto) 0.0, Total Counted 100, Neutrophils % (Manual) 87 H, Lymphocytes % (Manual) 8 L, Monocytes % (Manual) 5, Platelet Estimate Normal, Hypochromasia 2+, Anisocytosis 1+, Macrocytosis 1+ 06/18/21 08:12: Sodium 137, Potassium 4.5, Chloride 111 H, Carbon Dioxide 20 L, Anion Gap 10.5, BUN 25 H, Creatinine 1.50 H, Estimated Creat Clear 34, Estimated GFR 46 L, Est GFR ( Amer) 56 L, Glucose 65 L D, Calcium 8.5, Total Bilirubin 0.7, AST 27, ALT < 4 L D, Alkaline Phosphatase 198 H, Total Protein 4.7 L, Albumin 2.0 L D, Globulin 2.7, Albumin/Globulin Ratio 0.7 L 06/19/21 06:24: WBC 10.0, RBC 3.35 L, Hgb 9.5 L D, Hct 31.6 L, MCV 94.4 H, MCH 28.4, MCHC 30.1 L, RDW 17.3, Plt Count 903 H*, MPV 7.9, Neut % (Auto) 81.2 H, Lymph % (Auto) 13.7, [place] % (Auto) 4.0, Eos % (Auto) 0.7, Baso % (Auto) 0.4, Neut # (Auto) 8.1 H, Lymph # (Auto) 1.4, [place]lan # (Auto) 0.4, Eos # (Auto) 0.1, Baso # (Auto) 0.0 06/19/21 06:24: Sodium 137, Potassium 4.4, Chloride 111 H, Carbon Dioxide 23, Anion Gap 7.4, BUN 26 H, Creatinine 1.60 H, Estimated Creat Clear 31, Estimated GFR 43 L, Est GFR ( Amer) 52 L, Glucose 91 D, Calcium 8.2 L I & O for Last 24 hours: Intake & Output 06/16/21 06/17/21 06/18/21 06/19/21 11:59 11:59 11:59 11:59 Intake Total 50 / 50 1240 / 1240 Output Total 579 / 579 250 / 250 Balance -529 / -529 990 / 990 Weight 120 lb 3.207 oz 117 lb 6 oz Microbiology Reports for the Last 24 Hours: Microbiology 06/17/21 15:21 Urine,Catheterized Urine Culture - Preliminary NO GROWTH AFTER 24 HOURS - Constitutional no acute distress - *Routine Respiratory Exam Present: CTA bilaterally - *Routine Cardiovascular Exam Present: RRR - *Routine Abdominal Exam Present: tenderness (Left lower quadrant) Assessment and Plan (1) Colitis Status: Acute Category: Medical Code(s): K52.9 - Noninfective gastroenteritis and colitis, unspecified (2) Ureteral stone with hydronephrosis Status: Acute Category: Medical Code(s): N13.2 - Hydronephrosis with renal and ureteral calculous obstruction (3) C. difficile colitis Status: Acute Category: Medical Code(s): A04.72 - Enterocolitis due to Clostridium difficile, not specified as recurrent (4) Acute kidney injury Status: Acute Category: Medical Code(s): N17.9 - Acute kidney failure, unspecified (
[2021-06-19 08:00] VITALS: BP 95/58; PULSE 94; RESP 16; TEMP 36.1; O2SAT 94
--- NOTE | 2021-06-19 10:50 | HMH.PTWOUND ---
Rehab Inpt Wound Evaluation Rehab IP Wound Evaluation Start: 06/19/21 07:10 Freq: ONCE Status: Active Protocol: Document 06/19/21 10:39 [email or web address] (Rec: 06/19/21 10:50 [email or web address] [id number]) Rehab PT Wound Assessment Patient Status Premedicated Prior to Dressing Change Yes Subjective Subjective Pt reports wound began ~ Mar. when he had hernail mesh removal surgery and following post-operative complications. S/P surgery at [facility] pt was moved to [facility] for extended rehab. Pt has had home health assisting at home w/ wound care and dressing changes Wound Left Medial Buttock Wound Type Pressure Ulcer Is This a Chronic Wound Yes Wound Staging Stage II Query Text:Stage I - Unbroken, red skin, no blanching. Stage II - Skin broken, superficial skin loss involving epidermis alone or also dermis. Partial loss of skin layers. Stage III - Pressure area involves epidermis, dermis and subcutaneous tissue, full thickness skin loss. Stage IV - Pressure area involves epidermis, subcutaneous tissue, bone and other supportive tissue. Full thickness skin loss with extensive destruction of underlying tissue and structures. Wound Length (cm) 1.0 Wound Width (cm) 2.0 Wound Bed Appearance Beefy Red,Yellow,Slough Percentage Granulated (%) 50 Percentage of Slough (%) 50 Percentage of Eschar (Yellow) (%) 50 Wound Margins Description Indistinct Surrounding Tissue Appearance [place],Bright Red Surrounding Tissue Temperature Hot Wound Drainage Description None Drainage Amount None Drainage Odor No Odor Dressing Status Soiled Primary Dressing Medicated Gauze Pad Comment betadyne gauze Wound Secondary Dressing Type Absorbant Pad Comment optifoam sacral Wound Debridement Amount of Tissue None Removed Dressing Change Date 06/19/21 Dressing Change Patient Tolerance Tolerated Well Right Medial Buttock Wound Type Pressure Ulcer Is This a Chronic Wound Yes Wound Staging Stage II Query Text:Stage I - Unbroken, red skin, no blanching. Stage II - Skin broken, superficial skin loss involving epidermis alone or also
[2021-06-19 12:00] VITALS: BP 101/63; PULSE 84; RESP 16; TEMP 36.6; O2SAT 98
--- NOTE | 2021-06-19 14:16 | PC.NURSE ---
Patient ready for discharge to home today
--- NOTE | 2021-06-19 14:24 | SW/DCPLANNER ---
PATIENT IS DISCHARGING HOME TODAY AND ALREADY HAS HOME HEALTH SERVICES WITH CARETENDERS AND PATIENTS SIGNIFICANT OTHER HAS ALREADY MADE CONTACT WITH PATIENTS NURSE THAT HE WILL BE DISCHARGING.. I HAVE FAXED AN ORDER FOR RESUMPTION OF CARE AND PATIENT UPDATED INFORMATION.. PATIENT STATED HIS DAUGHTER WILL BE HERE TO PICK HIM UP....
[2021-06-19 14:26] VITALS: BMI 21.4
--- NOTE | 2021-06-19 14:41 | HMH.PHAINT ---
MEDICATION DISCHARGE COUNSELING PROVIDED. DISCUSSED THE ADDITION OF SHORT-COURSE VANCOMYCIN AND HOW TO TAKE. DISCUSSED STOPPAGE OF THE BLOOD PRESSURE MEDICATION (AMLODIPINE-BENAZEPRIL). PATIENT AND ENDORSED NO FURTHER QUESTIONS AT THIS TIME
--- NOTE | 2021-07-02 12:16 | HMH.DCSUM ---
General - General Admission date:: 06/17/21 Discharge date: 06/19/21 HPI HPI: 71-year-old male presented to the emergency department for increasing left lower quadrant abdominal pain as well as a milder pain in the epigastrium. Patient been experiencing this pain for several weeks and this was believed to be related to recent surgery to remove mesh from the left inguinal area that had developed an abscess. This surgery was in mid March and was complicated by development of pleural effusions postoperatively and C. difficile colitis. Initial surgery was at the [facility] and subsequent hospitalization was also at [facility] where he had chest tubes and completed a 6 weeks course of vancomycin for his C. difficile. Patient rehabilitated at [facility] before returning home. Patient has been having left lower quadrant pain this entire time although the pain has gradually increased. He presented to the emergency department. He denied hematuria. Patient does report multiple small loose stools daily. He denies fevers or chills. In the emergency department a CT scan showed inflammatory changes of the colon consistent with colitis and an obstructing left ureteral stone. Patient was admitted after being given IV antibiotics and urologic consultation has been ordered. Hospital Course Hospital Course: Patient was admitted for obstructive left ureterolithiasis. On 06/18 he underwent succesful laser lithotripsy with stent placment by Dr. Gauthier. This provided significant pain relief. Stool studies indicated persistence of C. Diff which the patient had been treated for 2 months prior. He was restarted on oral vanc. After patient's procedure he was observed due to his weakness, hypotension at home, and poor appetite. Appetite improved after his stone was addressed. His blood pressure was stable and he ambulated with assistance of his cane. He was discharged to home Objective Vital signs: Temp Pulse Resp BP Pulse Ox 97.9 F 84 16 101/63 L 98 06/19/21 12:00 06/19/21 12:00 06/19/21 12:00 06/19/21 12:00 06/19/21 12:00 DS: Diagnosis - Discharge Diagnosis (1) Colitis Status: Acute (2) Ureteral stone with hydronephrosis Status: Acute (3) C. difficile colitis Status: Acute (4) Acute kidney injury Status: Acute (5) Sacral decubitus ulcer, stage II Status: Acute Discharge Plan - Patient Discharge Instructions ACTIVITY: Continue current activity DIET: continue same diet Patient Instructions: How to Prevent Pressure Ulcers, Hydronephrosis -- Adult, DI for Pressure Injuries, DI for Colitis, DI for Clostridioides difficile Infection - Follow up Plan Follow up with: Patrick Munguia MD [Primary Care Provider] - 2 days Manjit Gauthier MD [Staff Physician] - 06/25/21 1:00 pm Disposition: Home, Self-Care Condition at discharge:: Improved Home Medications: Home Medications Medication Instructions Recorded Confirmed Type aspirin 81 mg tablet,delayed 81 mg PO DAILY tab 10/20/17 06/25/21 History release fenofibrate nanocrystallized 145 145 mg PO DAILY tab 10/20/17 06/25/21 History mg tablet meloxicam 15 mg tablet 15 mg PO DAILY tab 10/20/17 06/25/21 History levothyroxine 88 mcg tablet 88 mcg PO DAILY tab 08/06/20 06/25/21 History Lactobacillus Acidophilus/Fos 1 tab PO DAILY 06/18/21 06/25/21 History [Acidophilus Probiotic Tablet] Pnv No.95/Ferrous Fum/Folic AC 1 tab PO HS 06/18/21 06/25/21 History [ Caplet] Tamsulosin HCl [Flomax 0.4mg 0.4 mg PO HS 06/18/21 06/25/21 History capsule] Vancomycin HCl 125 mg PO QID #56 cap 06/19/21 06/25/21 Rx Prescriptions/Medication Reconciliation: New Vancomycin HCl 125 mg PO QID #56 cap Continued meloxicam 15 mg tablet 15 mg PO DAILY tab aspirin 81 mg tablet,delayed release 81 mg PO DAILY tab fenofibrate nanocrystallized 145 mg tablet 145 mg PO DAILY tab levothyroxi
[2021-09-20 20:42] LABS: Size 5X4
[2021-09-20 20:43] LABS: Ca oxalate dihydrate 30
[2022-04-24 10:54] LABS: POC Glucose,Bedside 74 (70-110)
== END 2021-06-19 14:50 | disposition home or self-care (01) ==
LOC: ER 18:13 → 2ND 19:51
PROVIDERS: Urology; Admitting Provider Family Medicine; Emergency Provider Student in an Organized Health Care Education/Training Program; PCP Family Medicine; Visit Provider Family Medicine
DX: K52.9 Noninfective gastroenteritis and colitis, unspecified (principal); Z20.822 Contact with and (suspected) exposure to COVID-19; D75.839 Thrombocytosis, unspecified; N13.2 Hydronephrosis with renal and ureteral calculous obstruction; E86.0 Dehydration; I10 Essential (primary) hypertension; E03.9 Hypothyroidism, unspecified; Z79.899 Other long term (current) drug therapy; Z88.8 Allergy status to other drugs, medicaments and biological substances
CPT/HCPCS: 52356; G0378; 36415; 74018; 74177; 80048; 80053; 81001; 82150; 82370; 82962; 83690; 85007; 85025; 85651; 86140; 87086; 87088; 87186; 87506; 96365; 96367; 99284; C2617; C9803; J2405; J2543; J3370; Q9967; U0003; U0005

== ENCOUNTER → 2021-06-25 13:55 | Outpatient (CLI) | payer MEDICARE, MEDICAID, SELFPAY ==
[2021-06-25 17:08] LABS: Prostate Specific Ag, Diagnost < 0.064 ng/ml (0.0-4.0)
== END ==
PROVIDERS: Visit Provider Urology
DX: C61 Malignant neoplasm of prostate (principal)
CPT/HCPCS: 36415; 84153

== ENCOUNTER 2021-09-29 19:49 | Inpatient (IN) | payer MEDICARE, MEDICAID, SELFPAY ==
[2021-09-29] VITALS (8 sets, daily range): BP systolic 129–170; BP diastolic 72–93; PULSE 66–87; RESP 17; TEMP 38; O2SAT 96–98; BMI 21.2
--- NOTE | 2021-09-29 20:15 | ECG_ITS ---
APPROVED REPORT Exam: Resting ECG HR:76 bpm ECG Measurements Heart Rate 76 AXES NJ 163 P 54 QRSd 99 QRS -40 QT 378 T 32 QTc 408 Conclusion SINUS RHYTHM LEFT AXIS DEVIATION [QRS AXIS < -30] INCOMPLETE RIGHT BUNDLE BRANCH BLOCK [90+ ms QRS DURATION, TERMINAL R IN V1/V2, 40+ ms S IN I/aVL/V4/V5/V6] MODERATE VOLTAGE CRITERIA FOR LVH, CONSIDER NORMAL VARIANT [MEETS CRITERIA IN ONE OF: R(aVL), S(V1), R(V5), R(V5/V6)+S(V1)] NONSPECIFIC ST ELEVATION [0.05+ mV ST ELEVATION] ABNORMAL ECG UNCONFIRMED REPORT Electronically signed by : Patrick Barker MD 09/30/2021 19:49:47
[2021-09-29 20:31] LABS: Lactic Acid 0.9 mmol/L (0.7-2.1); Magnesium 1.8 mg/dl (1.6-2.3)
--- NOTE | 2021-09-29 20:38 | XR_ITS ---
PROCEDURE INFORMATION: Exam: XR Chest Exam date and time: 09/29/2021 8:38 PM Age: 71 years old Clinical indication: Fever and other: Generalized weakness; Additional info: Weakness, fever TECHNIQUE: Imaging protocol: XR of the chest. Views: 1 view. COMPARISON: 1. SD XR KUB 06/18/2021 2:[address] ABDOMEN PELVIS W CON 06/17/2021 3:46 PM FINDINGS: Lungs: The lungs are adequately inflated. No focal consolidation. Pleural spaces: No pneumothorax or pleural effusion. Heart/Mediastinum: The cardiomediastinal silhouette has normal size and contour. Bones/joints: Multilevel degenerative type changes of the spine. No acute osseous abnormality. Intraperitoneal space: The visualized abdomen is unremarkable. IMPRESSION: No acute cardiopulmonary disease.
--- NOTE | 2021-09-29 20:41 | HMH.EDWEAK ---
ED Disposition Clinical Impression: SIRS (systemic inflammatory response syndrome), Hypokalemia, Elevated troponin UTI (urinary tract infection) Qualifiers: Urinary tract infection type: site unspecified Hematuria presence: without hematuria Qualified Code(s): N39.0 - Urinary tract infection, site not specified Disposition: Admitted As Inpatient Condition on Discharge: Good Referrals: Patrick Munguia MD [Primary Care Provider] - - Critical Care Critical Care Time: No Attestation: On 09/29/21, the high probability of a clinically significant, sudden or life threatening deterioration of the following system(s) required my full and direct attention, intervention and personal management. The time I documented below is in addition to time spent performing reported procedures but includes the following listed in this critical care notation. Medical Decision Making - Medical Records Medical records reviewed: Yes: I reviewed the patient's medical records. - Chaz Inquiry Pt receiving controlled substance: No Vital Signs: 09/29/21 19:47 Temperature 100.4 F H Temperature Source Rectal Pulse Rate [Right] 81 Respiratory Rate 17 Blood Pressure [Right Arm] 170/93 H Blood Pressure Mean [Right Arm] 118 Blood Pressure Source [Right Arm] Automatic Cuff 02 Sat by Pulse Oximetry 98 Oxygen Delivery Method Room Air - Lab Data Lab results reviewed: Yes: I reviewed the patient's lab results. Lab Results 09/29/21 19:57: ESR 25 H 09/29/21 19:57: Magnesium 1.8, Troponin I 0.37 H, C-Reactive Protein 51.0 H, Procalcitonin 0.224, TSH 2.23, Thyroxine (T4) 10.9 09/29/21 19:57: Lactate 0.9 09/29/21 19:57: WBC 13.3 H, RBC 3.21 L, Hgb 9.6 L, Hct 30.4 L, MCV 94.8 H, MCH 30.1, MCHC 31.7 L, RDW 14.2, Plt Count 362, MPV 8.3, Neut % (Auto) 84.8 H, Lymph % (Auto) 7.3 L, [place] % (Auto) 4.8, Eos % (Auto) 2.6, Baso % (Auto) 0.5, Neut # (Auto) 11.2 H, Lymph # (Auto) 1.0, [place] # (Auto) 0.6, Eos # (Auto) 0.3, Baso # (Auto) 0.1 09/29/21 19:57: Sodium 135 L, Potassium 2.7 L*, Chloride 102, Carbon Dioxide 29, Anion Gap 6.7, BUN 12, Creatinine 1.00, Estimated Creat Clear 51, Estimated GFR 73, Est GFR ( Amer) 89, Glucose 99, Calcium 8.6, Total Bilirubin 0.6, AST 47, ALT 22, Alkaline Phosphatase 147 H, Total Protein 5.7 L, Albumin 2.9 L, Globulin 2.8, Albumin/Globulin Ratio 1.0 L 09/29/21 21:20: Urine Color Yellow, Urine Appearance Clear, Urine pH 8.0, Ur Specific [place] 1.015, Urine Protein Trace, Urine Glucose (UA) Negative, Urine Ketones Negative, Urine Blood 2+, Urine Nitrate Negative, Urine Bilirubin Negative, Urine Urobilinogen 0.2, Ur Leukocyte Esterase 1+ A, Urine RBC 50-100, Urine WBC 20-50, Ur Squamous Epith Cells 3-5, Urine Bacteria 1+ 09/29/21 21:45: Troponin I 0.34 H Result diagrams: 09/29/21 19:57 09/29/21 19:57 Orders (Tests/Meds): ED MEDICATIONS Generic Name Dose Route Start Last Admin Trade Name Freq PRN Reason Stop Dose Admin Sodium Chloride 1,000 mls @ 999 mls/hr 09/29/21 20:45 09/29/21 21:16 Sod Chlor 0.9% 1000ml Bag IV 09/29/21 21:45 999 mls/hr .Q1H1M TRUMAN Administration Ceftriaxone Sodium 1 gm/ 50 mls @ 100 mls/hr 09/29/21 22:15 Sodium Chloride IV 10/13/21 22:14 Q24H TRUMAN Discontinued Medications Generic Name Dose Route Start Last Admin Trade Name Freq PRN Reason Stop Dose Admin Acetaminophen 1,000 mg 09/29/21 20:41 09/29/21 21:16 Acetaminophen 500mg Tab PO 09/29/21 20:42 1,000 mg ONCE ONE Administration ORDERS Category Date Time Status Diarrhea 23 Panel, PCR Stat Lab 09/29/21 20:55 Ordered Rapid PCR Covid and Flu A/B Stat Lab 09/29/21 20:15 Ordered Troponin I Q3H Lab 09/30/21 02:30 Ordered Blood Culture Stat Micro 09/29/21 20:21 Received Urine Culture Stat Micro 09/29/21 21:20 Received - Radiology Data #1 Image(s): Chest Image Reviewed: Yes I have reviewed radiologist's interpretation Preliminary Findings: Normal/NAD - ECG Data Tracing #1 No
[2021-09-29 20:50] LABS: Procalcitonin 0.224 ng/mL (0.0-2.0); T4 (Thyroxine) 10.9 ug/dl (5.53-11.0)
[2021-09-29 20:56] LABS: Erythrocyte Sedimentation Rate 25 mm/hr (0-20); Troponin I 0.37 ng/ml (0.00-0.034)
--- NOTE | 2021-09-29 20:56 | PC.NURSE ---
Critical troponin of 0.37 called from Maday in [facility] notified.
[2021-09-29 20:58] LABS: Basophils # 0.1 K/mm3 (0-0.2); Basophils % 0.5 % (0.1-2.0); Eosinophils # 0.3 K/mm3 (0.0-0.4); Eosinophils % 2.6 % (0.1-12.0); Hematocrit 30.4 % (42.0-52.0); Hemoglobin 9.6 g/dL (14.1-18.0); Lymphocytes % 7.3 % (10-50); Mean Corpuscular HGB Conc 31.7 g/dL (31.8-35.4); Mean Corpuscular Hemoglobin 30.1 pg (27.0-31.2); Mean Corpuscular Volume 94.8 fl (80-94); Mean Platelet Volume 8.3 fl (7.4-10.4); Monocytes # 0.6 K/mm3 (0.1-1.0); Monocytes % 4.8 % (1.7-9.3); Neutrophils # 11.2 K/mm3 (1.8-7.8); Neutrophils % 84.8 % (37.0-80.0); Platelet Count 362 K/mm3 (142-424); Red Blood Count 3.21 M/mm3 (4.60-6.20); Red Cell Distribution Width 14.2 % (11.5-17.5); White Blood Count 13.3 K/mm3 (4.8-10.8)
[2021-09-29 21:00] LABS: Chloride 102 mmol/L (98-107); Sodium 135 mmol/L (136-145)
--- NOTE | 2021-09-29 21:02 | ECG_ITS ---
APPROVED REPORT Exam: Resting ECG HR:76 bpm ECG Measurements Heart Rate 76 AXES MA 163 P 54 QRSd 99 QRS -40 QT 378 T 32 QTc 408 Conclusion SINUS RHYTHM LEFT AXIS DEVIATION [QRS AXIS < -30] INCOMPLETE RIGHT BUNDLE BRANCH BLOCK [90+ ms QRS DURATION, TERMINAL R IN V1/V2, 40+ ms S IN I/aVL/V4/V5/V6] MODERATE VOLTAGE CRITERIA FOR LVH, CONSIDER NORMAL VARIANT [MEETS CRITERIA IN ONE OF: R(aVL), S(V1), R(V5), R(V5/V6)+S(V1)] NONSPECIFIC ST ELEVATION [0.05+ mV ST ELEVATION] ABNORMAL ECG UNCONFIRMED REPORT Electronically signed by : Patrick Barker MD 09/30/2021 19:49:34
[2021-09-29 21:03] LABS: Alanine Aminotransferase 22 U/L (12-78); Albumin Level 2.9 g/dl (3.5-5.0); Alkaline Phosphatase 147 U/L (38-126); Anion Gap 6.7 mEq/L (5-15); Aspartate Amino Transferase 47 U/L (17-59); Bilirubin,Total 0.6 mg/dl (0.2-1.3); Blood Urea Nitrogen 12 mg/dl (9-20); Carbon Dioxide 29 mmol/L (22.0-30.0); Creatinine Clearance Estimated 51 mL/min (50-200); Estimated Glomerular Filt Rate 73 ml/min (>60); GFR (African American) 89 ML/MIN (>60); Globulin 2.8 g/dL (1.3-3.2); Total Protein,Serum 5.7 g/dl (6.3-8.2)
[2021-09-29 21:04] LABS: Calcium 8.6 mg/dl (8.4-10.2); Glucose 99 mg/dl (74-100); Thyroid Stimulating Hormone 2.23 uIU/mL (0.465-4.68)
[2021-09-29 21:06] LABS: Potassium 2.7 mmoL/L (3.5-5.1)
--- NOTE | 2021-09-29 21:08 | PC.NURSE ---
Maday from lab called a critical potassium of 2.7. aware. Pending orders.
[2021-09-29 21:25] LABS: Microscopic, Urine URINE MICROSCOPIC (MICROSCOPIC)
[2021-09-29 21:27] LABS: Appearance,Urine CLEAR (Clear); Bilirubin,Urine Negative (Negative); Blood, Urine 2+ (Negative); Color,Urine YELLOW (Yellow); Glucose,Urine (UA) Negative (Negative); Ketones,Urine Negative (Negative); Leukocyte Esterase,Urine 1+ (Negative); Nitrate,Urine Negative (Negative); Protein,Urine TRACE (Negative); Specific Gravity, Urine 1.015 (1.005-1.030); Urobilinogen,Urine 0.2 EU/dl (0.2)
[2021-09-29 21:34] LABS: Bacteria,Urine 1+ /lpf; RBC,Urine 50-100 #/hpf (0-3); WBC,Urine 20-50 #/hpf (0-3)
[2021-09-29 22:16] LABS: Troponin I 0.34 ng/ml (0.00-0.034)
[2021-09-29 22:46] LABS: Coronavirus 19, PCR Not Detected (NotDetected); Influenza A, PCR Not Detected (NotDetected); Influenza B, PCR Not Detected (NotDetected)
[2021-09-30] VITALS (13 sets, daily range): BP systolic 121–168; BP diastolic 73–85; PULSE 60–85; RESP 14–20; TEMP 36.5–37.5; O2SAT 96–98; BMI 20.5; BMI 20.2
--- NOTE | 2021-09-30 02:14 | PC.NURSE ---
patient placed in gown and pull-up changed
--- NOTE | 2021-09-30 02:54 | PC.NURSE ---
patient up to floor via stretcher @ this time.
[2021-09-30 03:06] LABS: Troponin I 0.32 ng/ml (0.00-0.034)
--- NOTE | 2021-09-30 05:02 | PC.WOUNDNOTE ---
healing pressure ulcer to buttocks and sacral area. Pt states it was really bad, but has healed up a lot.
--- NOTE | 2021-09-30 05:09 | PC.NURSE ---
Pt is a new admit. Upon arriving to floor, the only complaint pt has is weakness and loss of appetite. Pt states he has gotten very weak within the last 3 days. Today his was pulling him around on a sheet d/t inability to walk. Pt says he normally ambulates with a walker and x1 assist at home. Pt has had critical troponins, which are trending down. Pt states he does not have any pain, n/v, or soa. Monitoring pt via tele -no changes. IV infusing per order. Voiding per urinal. Pt has a healing pressure ulcer on bottom - see nursing wound note. Pt states his wound has improved a lot. Encouraged pt to turn frequently. Pt verbalized understanding. Offered to put a foam drsg on area - pt refused. No other needs or complaints voiced at this time. Call light in reach. Bed alarm on for safety. Cardiology consult in AM.
--- NOTE | 2021-09-30 06:13 | ECG_ITS ---
APPROVED REPORT Exam: Resting ECG HR:68 bpm ECG Measurements Heart Rate 68 AXES ID 165 P 4 QRSd 103 QRS -37 QT 429 T 2 QTc 446 Conclusion SINUS RHYTHM LEFT AXIS DEVIATION [QRS AXIS < -30] PATTERN CONSISTENT WITH PULMONARY DISEASE INCOMPLETE RIGHT BUNDLE BRANCH BLOCK [90+ ms QRS DURATION, TERMINAL R IN V1/V2, 40+ ms S IN I/aVL/V4/V5/V6] VOLTAGE CRITERIA FOR LVH [MEETS CRITERIA IN ONE OF: R(aVL), S(V1), R(V5), R(V5/V6)+S(V1)] NONSPECIFIC ST ELEVATION [0.05+ mV ST ELEVATION] ABNORMAL ECG UNCONFIRMED REPORT Electronically signed by : Patrick Barker MD 09/30/2021 19:49:06
[2021-09-30 06:47] LABS: Basophils % 0.4 % (0.1-2.0); Eosinophils # 0.5 K/mm3 (0.0-0.4); Eosinophils % 4.4 % (0.1-12.0); Hematocrit 26.8 % (42.0-52.0); Lymphocytes % 8.8 % (10-50); Mean Corpuscular HGB Conc 31.2 g/dL (31.8-35.4); Mean Corpuscular Volume 92.8 fl (80-94); Mean Platelet Volume 8.1 fl (7.4-10.4); Monocytes # 0.5 K/mm3 (0.1-1.0); Monocytes % 4.5 % (1.7-9.3); Neutrophils # 9.1 K/mm3 (1.8-7.8); Neutrophils % 81.9 % (37.0-80.0); Platelet Count 312 K/mm3 (142-424); Red Blood Count 2.89 M/mm3 (4.60-6.20); Red Cell Distribution Width 14.2 % (11.5-17.5); White Blood Count 11.1 K/mm3 (4.8-10.8)
--- NOTE | 2021-09-30 07:00 | PC.NURSE ---
Tele strip looks different from the strip before, pt asymptomatic. RT performed EKG. This RN took EKG to Dr. Rojas in ED. Dr. Rojas says he doesn't really see any change, that its sinus. Dr. Rojas signed off. EKG in chart.
[2021-09-30 07:09] LABS: Anion Gap 8.3 mEq/L (5-15); Blood Urea Nitrogen 11 mg/dl (9-20); Calcium 8.4 mg/dl (8.4-10.2); Carbon Dioxide 26 mmol/L (22.0-30.0); Chloride 109 mmol/L (98-107); Creatinine Clearance Estimated 49 mL/min (50-200); Estimated Glomerular Filt Rate 83 ml/min (>60); GFR (African American) 100 ML/MIN (>60); Glucose 84 mg/dl (74-100); Magnesium 1.7 mg/dl (1.6-2.3); Potassium 3.3 mmoL/L (3.5-5.1); Sodium 140 mmol/L (136-145)
--- NOTE | 2021-09-30 07:21 | CT_ITS ---
FINAL REPORT CLINICAL HISTORY: Left sided weakness, h/o stroke FINDINGS: Axial images of the head were obtained without contrast. Coronal reformatted images were also obtained. This study was performed with techniques to keep radiation doses as low as reasonably achievable (ALARA). Individualized dose reduction techniques using automated exposure control or adjustment of mA and/or kV according to the patient''s size were employed. There is generalized age-appropriate atrophy. Periventricular low-attenuation areas are seen consistent with mild chronic ischemic changes. There is no evidence of intracranial hemorrhage or mass. There is no evidence of acute infarct. There is no evidence of shift of the midline structures. No skull abnormality is seen on the bone window images. There is total opacification of the left maxillary sinus. IMPRESSION: Atrophy and mild periventricular chronic ischemic changes. Total opacification of the left maxillary sinus. No acute intracranial abnormality identified. Reviewed, Interpreted and Dictated by Minesh Chadwick III, MD Transcribed by Gabi Singer Authenticated by Minesh Chadwick III, MD on 09/30/2021 09:32:22 AM [facility]
--- NOTE | 2021-09-30 07:21 | CA_ITS ---
FINAL REPORT TECHNIQUE: Color Doppler, duplex Doppler and marie scale sonography of the bilateral neck arterial vasculature was performed. Velocities were measured in the carotid arteries. Stenosis evaluation based on the validated velocity criteria. CLINICAL HISTORY: left sided weakness, h/o TIA, elevated troponins, murmur, smokeless tobacco, HTN, hyperlipidemia, UTI. FINDINGS: The peak systolic velocity of the right common carotid artery is 76 cm/s. The peak systolic velocity of the right internal carotid artery is 80 cm/s and end diastolic velocity 19 cm/s. The ICA/CCA ratio is 1.2. A mild amount of plaque is present. The right external carotid artery is patent. The right vertebral artery is patent with antegrade flow. The peak systolic velocity of the left common carotid artery is 76 cm/s. The peak systolic velocity of the left internal carotid artery is 89 cm/s and end diastolic velocity 27 cm/s. The ICA/CCA ratio is 1.6. A mild amount of plaque is present. The left external carotid artery is patent.The left vertebral artery is patent with antegrade flow. IMPRESSION: Less than 50% bilateral carotid stenosis. Bilateral patent vertebral arteries with antegrade flow. Reviewed, Interpreted and Dictated by Minesh Chadwick III, MD Transcribed by Rena Levy Authenticated by Minesh Chadwick III, MD on 09/30/2021 11:24:03 AM [facility]
--- NOTE | 2021-09-30 07:21 | CT_ITS ---
FINAL REPORT TECHNIQUE: Thin section axial CT with IV contrast supplemented with multiplanar reconstruction under CT angiogram protocol. 3-D reconstructions were performed. This study was performed with techniques to keep radiation doses as low as reasonably achievable (ALARA). Individualized dose reduction techniques using automated exposure control or adjustment of mA and/or kV according to the patient''s size were employed. CLINICAL HISTORY: left sided weakness, h/o stroke FINDINGS: The distal vertebral, basilar and distal internal carotid arteries have an unremarkable appearance. No aneurysm is seen. Major intracranial vessels are patent without significant stenosis. IMPRESSION: No evidence of significant stenosis or major branch occlusion. Reviewed, Interpreted and Dictated by Minesh Chadwick III, MD Transcribed by Gabi Singer Authenticated by Minesh Chadwick III, MD on 09/30/2021 09:32:19 AM [facility]
--- NOTE | 2021-09-30 07:25 | HMH.HP ---
*Admission Date: 09/30/21 *Chief complaint: Weakness *History of present illness: 71-year-old male presented to the emergency department with 3 days of weakness and loss of appetite. Patient normally ambulates with a walker but apparently had become so weak he cannot bear weight at home and his was essentially dragging or carrying him through the house. Patient tells me he had left leg weakness that was inhibiting his ability to ambulate. Patient has a history of TIA but claims that he had no symptoms from his previous TIA. I do not believe this is correct and will have to review office records. Patient reports sudden loss of appetite 3 days ago as well. He has not had fevers at home but did have a low-grade fever in the emergency department. Work-up in the ER revealed hypokalemia and a urinary tract infection. Patient was admitted for treatment of electrolyte imbalances and given IV Rocephin. Patient was also found to have troponin elevated at 0.4 however this was stable throughout the night on serial exams. Patient denies any chest pain or shortness of breath. This morning he reports some improvement in his generalized weakness. [facility] History I have reviewed the patient's past medical history: Yes Medical History: Reports:: Hyperlipidemia, Hypertension, Kidney Stones, Transient Ischemic Attacks (TIA) Denies:: Cancer, Diabetes Mellitus Type 1, Diabetes Mellitus Type 2, MRSA *Have you ever received a pneumonia vaccine?: Yes *Have you received a flu vaccine this season?: Yes Other Medical History: Reports: Arthritis, Thyroid Disease Other Surgeries: Yes: Colonoscopy, Hernia Repair, Ureter Stent, Other Amputation: No Fractures: No - *Social History Smoking Status: Never smoker Tobacco Type: smokeless tobacco Alcohol Intake: never Substance Use Type: denies use *Occupational Status:: retired Household Members: spouse *Travel in the last 8 weeks: None Family Hx:: Heart Attack Review of Systems - Review of Systems Review of systems:: pertinent systems reviewed and negative unless documented below - Constitutional Reports lack of energy - *Cardiovascular Denies chest pain, Denies chest pain at rest - *Respiratory Denies change in phlegm color, Denies chest congestion, Denies cough - *Gastrointestinal Denies abdominal pain (DOS) - *Musculoskeletal Reports abnormal walking, Reports joint pain, Reports decreased muscle mass, Reports muscle weakness (Left-sided, unclear if weakness is at baseline) - *Neurologic Reports weakness, Denies abnormal speech, Denies confusion, Denies localized weakness, Denies headache(s), Denies seizure-like activity Meds Home Medications Medication Instructions Recorded Confirmed Type aspirin 81 mg tablet,delayed 81 mg PO DAILY tab 10/20/17 09/29/21 History release fenofibrate nanocrystallized 145 145 mg PO DAILY tab 10/20/17 09/29/21 History mg tablet meloxicam 15 mg tablet 15 mg PO DAILY tab 10/20/17 09/29/21 History levothyroxine 88 mcg tablet 88 mcg PO DAILY tab 08/06/20 09/29/21 History Benazepril HCl [Lotensin] 10 mg PO DAILY 09/29/21 09/29/21 History Mag Hydrox/Aluminum Hyd/Simeth 10 ml PO DAILYP PRN 09/29/21 09/29/21 History [Mylanta Maximum Strength Pkt] Oxybutynin Chloride [Oxybutynin 10 mg PO DAILY 09/29/21 09/29/21 History Chloride ER] Allergies Allergy/AdvReac Type Severity Reaction Status Date / Time Sulfa (Sulfonamide Allergy Unknown Verified 06/25/21 13:25 Antibiotics) Exam Vital signs and Labs for Last 24 Hours: Temp Pulse Resp BP Pulse Ox 97.7 F 64 14 134/73 98 09/30/21 04:38 09/30/21 04:38 09/30/21 04:38 09/30/21 04:38 09/30/21 04:38 Laboratory Results - last 24 hr 09/29/21 19:57: ESR 25 H 09/29/21 19:57: Magnesium 1.8, Troponin I 0.37 H, C-Reactive Protein 51.0 H, Procalcitonin 0.224, TSH 2.23, Thyroxine (T4) 10.9 09/29/21 19:57: Lactate 0.9 09/29/21 19:57: WBC 13.3 H, RBC 3.21 L, Hgb 9.6 L, Hct 30.4 L, MCV
--- NOTE | 2021-09-30 07:31 | P.CONPHA_ITS ---
[facility] Pharmacy VTE Monitoring - Patient Demographics Admission date: 09/29/21 Report Date: 09/30/21 Time: 07:31 Allergies/Adverse Reactions: Patient Allergies Sulfa (Sulfonamide Antibiotics) Allergy (Unknown, Verified 06/25/21 13:25) Height: 1.6 m Weight: 52.418 kg Patient Problems: Current Active Problems UTI (urinary tract infection) (Acute) SIRS (systemic inflammatory response syndrome) (Acute) Hypokalemia (Acute) Elevated troponin (Acute) - VTE Risk Labs: VTE Related Lab Results Hgb 9.6 g/dL (14.1-18.0) L 09/29/21 19:57 Hct 26.8 % (42.0-52.0) L 09/30/21 06:34 Plt Count 312 K/mm3 (142-424) 09/30/21 06:34 BUN 11 mg/dl (9-20) 09/30/21 06:34 Creatinine 0.90 mg/dl (0.66-1.25) 09/30/21 06:34 Estimated Creat Clear 49 mL/min (50-200) 09/30/21 06:34 Was VTE Risk Assessment Performed: Yes VTE Score: 4 VTE Risk Level: Low Risk Clinical Trial Participant: No - Prophylaxis VTE Prophylaxis Ordered?: Yes Types of VTE Prophylaxis: TEDS Knee High
[2021-09-30 07:59] LABS: Hemoglobin 8.4 g/dL (14.1-18.0)
--- NOTE | 2021-09-30 08:55 | HMH.PHAINT ---
home medication list verified using list from [facility]
--- NOTE | 2021-09-30 09:18 | HMH.ITSTN ---
Patient did not have correct iv location for CTA study and patients current iv would not be able to handle the iv contrast flow rate so i started a new iv in patients right AC. Handoff given to Nurse Lorena
--- NOTE | 2021-09-30 10:41 | HMH.CNCARD ---
History of Present Illness Consult date: 09/30/21 Requesting physician: Patrick Munguia Chief complaint: CVA, Mitral valve mass Additional Medical History:: 1. Hypertension 2. 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 History of abdominal mesh infection requiring hospitalization, 03/2021, with prolonged stay. Home since 06/2021. 4. Remote history of TIA 5. CVA, 09/2021 A. Echo, 09/30/2021, mitral valve mass noted with normal LV function. 6. Hyperlipidemia 7. Hypothyroidism, on replacement therapy History of present illness: 71-year-old male presented to the emergency department with 3 days of weakness and loss of appetite. Patient normally ambulates with a walker but apparently had become so weak he cannot bear weight at home and his was essentially dragging or carrying him through the house. Patient tells me he had left leg weakness that was inhibiting his ability to ambulate. Patient has a history of TIA but claims that he had no symptoms from his previous TIA. I do not believe this is correct and will have to review office records. Patient reports sudden loss of appetite 3 days ago as well. He has not had fevers at home but did have a low-grade fever in the emergency department. Work-up in the ER revealed hypokalemia and a urinary tract infection. Patient was admitted for treatment of electrolyte imbalances and given IV Rocephin. Patient was also found to have troponin elevated at 0.4 however this was stable throughout the night on serial exams. Patient denies any chest pain or shortness of breath. This morning he reports some improvement in his generalized weakness. The above per Dr. Munguia's Patient confirmed events as noted above. and daughter are present. Patient has had some left-sided weakness which causes him to ambulate with a walker since his hospitalization last year for abdominal mesh infection and subsequent rehab. However, symptoms became markedly worse 3 days ago to the point of unable to ambulate and significant loss of appetite. Echocardiogram today was reviewed by Dr. Aguilar showing a mitral valve mass (concern for myxoma versus vegetation) as a possible source for the patient's CVA. Dr. Hammonds at was contacted with plans for transfer for further treatment. [facility] History Medical History: Reports:: Hyperlipidemia, Hypertension, Kidney Stones, Transient Ischemic Attacks (TIA) Denies:: Cancer, Diabetes Mellitus Type 1, Diabetes Mellitus Type 2, MRSA *Have you ever received a pneumonia vaccine?: Yes *Have you received a flu vaccine this season?: Yes Other Medical History: Reports: Arthritis, Thyroid Disease Other Surgeries: Yes: Colonoscopy, Hernia Repair, Ureter Stent, Other Amputation: No Fractures: No - *Social History Smoking Status: Never smoker Tobacco Type: smokeless tobacco Alcohol Intake: never Substance Use Type: denies use *Occupational Status:: retired Household Members: spouse *Travel in the last 8 weeks: None Family Hx:: Heart Attack Meds Home Medications Medication Instructions Recorded Confirmed Type aspirin 81 mg tablet,delayed 81 mg PO DAILY tab 10/20/17 09/29/21 History release fenofibrate nanocrystallized 145 145 mg PO DAILY tab 10/20/17 09/29/21 History mg tablet meloxicam 15 mg tablet 15 mg PO DAILY tab 10/20/17 09/29/21 History levothyroxine 88 mcg tablet 88 mcg PO DAILY tab 08/06/20 09/29/21 History Benazepril HCl [Lotensin] 10 mg PO DAILY 09/29/21 09/29/21 History Mag Hydrox/Aluminum Hyd/Simeth 10 ml PO DAILYP PRN 09/29/21 09/29/21 History [Mylanta Maximum Strength Pkt] Oxybutynin Chloride [Oxybutynin 10 mg PO DAILY 09/29/21 09/29/21 History Chloride ER] Allergies Allergy/AdvReac Type Severity Reaction Status Date / Time Sulfa (Sulfonamide Allergy Unknown Verified 06/25/21 13:25 Antibiotics) Exam Vital signs and Labs for Last 24 Hours: Temp Pulse Resp BP Pulse Ox 98.1 F 70 16 153/85 H 96 09/30/21 08:00
--- NOTE | 2021-09-30 10:46 | P.CONPHA_ITS ---
- Pharmacy Consult Date: 09/30/21 Time: 10:46 Referring provider: DR. LEONARDO Reason for Consult:: VANCOMYCIN DOSING Allergies and ADEs:: Allergies Allergy/AdvReac Type Severity Reaction Status Date / Time Sulfa (Sulfonamide Allergy Unknown Verified 06/25/21 13:25 Antibiotics) Home Medications:: Home Medications Medication Instructions Recorded Confirmed Type aspirin 81 mg tablet,delayed 81 mg PO DAILY tab 10/20/17 09/29/21 History release fenofibrate nanocrystallized 145 145 mg PO DAILY tab 10/20/17 09/29/21 History mg tablet meloxicam 15 mg tablet 15 mg PO DAILY tab 10/20/17 09/29/21 History levothyroxine 88 mcg tablet 88 mcg PO DAILY tab 08/06/20 09/29/21 History Benazepril HCl [Lotensin] 10 mg PO DAILY 09/29/21 09/29/21 History Mag Hydrox/Aluminum Hyd/Simeth 10 ml PO DAILYP PRN 09/29/21 09/29/21 History [Mylanta Maximum Strength Pkt] Oxybutynin Chloride [Oxybutynin 10 mg PO DAILY 09/29/21 09/29/21 History Chloride ER] Height: 1.6 m Weight: 52.418 kg Laboratory Results:: Laboratory Results - last 24 hr 09/29/21 19:57: ESR 25 H 09/29/21 19:57: Magnesium 1.8, Troponin I 0.37 H, C-Reactive Protein 51.0 H, Procalcitonin 0.224, TSH 2.23, Thyroxine (T4) 10.9 09/29/21 19:57: Lactate 0.9 09/29/21 19:57: WBC 13.3 H, RBC 3.21 L, Hgb 9.6 L, Hct 30.4 L, MCV 94.8 H, MCH 30.1, MCHC 31.7 L, RDW 14.2, Plt Count 362, MPV 8.3, Neut % (Auto) 84.8 H, Lymph % (Auto) 7.3 L, Steele % (Auto) 4.8, Eos % (Auto) 2.6, Baso % (Auto) 0.5, Neut # (Auto) 11.2 H, Lymph # (Auto) 1.0, [place] # (Auto) 0.6, Eos # (Auto) 0.3, Baso # (Auto) 0.1 09/29/21 19:57: Sodium 135 L, Potassium 2.7 L*, Chloride 102, Carbon Dioxide 29, Anion Gap 6.7, BUN 12, Creatinine 1.00, Estimated Creat Clear 51, Estimated GFR 73, Est GFR ( Amer) 89, Glucose 99, Calcium 8.6, Total Bilirubin 0.6, AST 47, ALT 22, Alkaline Phosphatase 147 H, Total Protein 5.7 L, Albumin 2.9 L, Globulin 2.8, Albumin/Globulin Ratio 1.0 L 09/29/21 21:20: Urine Color Yellow, Urine Appearance Clear, Urine pH 8.0, Ur Specific [place] 1.015, Urine Protein Trace, Urine Glucose (UA) Negative, Urine Ketones Negative, Urine Blood 2+, Urine Nitrate Negative, Urine Bilirubin Negative, Urine Urobilinogen 0.2, Ur Leukocyte Esterase 1+ A, Urine RBC 50-100, Urine WBC 20-50, Ur Squamous Epith Cells 3-5, Urine Bacteria 1+ 09/29/21 21:45: Troponin I 0.34 H 09/29/21 22:32: SARS-CoV-2 (PCR) Not detected, Influenza A Untype (PCR) Not detected, Influenza Type B (PCR) Not detected 09/30/21 02:27: Troponin I 0.32 H 09/30/21 06:34: WBC 11.1 H, RBC 2.89 L, Hgb 8.4 L D, Hct 26.8 L, MCV 92.8, MCH 29.0, MCHC 31.2 L, RDW 14.2, Plt Count 312, MPV 8.1, Neut % (Auto) 81.9 H, Lymph % (Auto) 8.8 L, Steele % (Auto) 4.5, Eos % (Auto) 4.4, Baso % (Auto) 0.4, Neut # (Auto) 9.1 H, Lymph # (Auto) 1.0, Steele # (Auto) 0.5, Eos # (Auto) 0.5 H, Baso # (Auto) 0.0 09/30/21 06:34: Sodium 140, Potassium 3.3 L D, Chloride 109 H, Carbon Dioxide 26, Anion Gap 8.3, BUN 11, Creatinine 0.90, Estimated Creat Clear 49, Estimated GFR 83, Est GFR ( Amer) 100, Glucose 84, Calcium 8.4, Magnesium 1.7 Medical History: Reports:: Hyperlipidemia, Hypertension, Kidney Stones, Transient Ischemic Attacks (TIA) Denies:: Cancer, Diabetes Mellitus Type 1, Diabetes Mellitus Type 2, MRSA Assessment and Plan (1) CVA (cerebral vascular accident) Status: Suspected Category: Medical Code(s): I63.9 - Cerebral infarction, unspecified (2)
--- NOTE | 2021-09-30 10:50 | HMH.PHACONS ---
- Pharmacy Consult Date: 09/30/21 Time: 10:50 Referring provider: DR. LEONARDO Reason for Consult:: GENTAMICIN DOSING Allergies and ADEs:: Allergies Allergy/AdvReac Type Severity Reaction Status Date / Time Sulfa (Sulfonamide Allergy Unknown Verified 06/25/21 13:25 Antibiotics) Home Medications:: Home Medications Medication Instructions Recorded Confirmed Type aspirin 81 mg tablet,delayed 81 mg PO DAILY tab 10/20/17 09/29/21 History release fenofibrate nanocrystallized 145 145 mg PO DAILY tab 10/20/17 09/29/21 History mg tablet meloxicam 15 mg tablet 15 mg PO DAILY tab 10/20/17 09/29/21 History levothyroxine 88 mcg tablet 88 mcg PO DAILY tab 08/06/20 09/29/21 History Benazepril HCl [Lotensin] 10 mg PO DAILY 09/29/21 09/29/21 History Mag Hydrox/Aluminum Hyd/Simeth 10 ml PO DAILYP PRN 09/29/21 09/29/21 History [Mylanta Maximum Strength Pkt] Oxybutynin Chloride [Oxybutynin 10 mg PO DAILY 09/29/21 09/29/21 History Chloride ER] Height: 1.6 m Weight: 52.418 kg Laboratory Results:: Laboratory Results - last 24 hr 09/29/21 19:57: ESR 25 H 09/29/21 19:57: Magnesium 1.8, Troponin I 0.37 H, C-Reactive Protein 51.0 H, Procalcitonin 0.224, TSH 2.23, Thyroxine (T4) 10.9 09/29/21 19:57: Lactate 0.9 09/29/21 19:57: WBC 13.3 H, RBC 3.21 L, Hgb 9.6 L, Hct 30.4 L, MCV 94.8 H, MCH 30.1, MCHC 31.7 L, RDW 14.2, Plt Count 362, MPV 8.3, Neut % (Auto) 84.8 H, Lymph % (Auto) 7.3 L, [place] % (Auto) 4.8, Eos % (Auto) 2.6, Baso % (Auto) 0.5, Neut # (Auto) 11.2 H, Lymph # (Auto) 1.0, [place] # (Auto) 0.6, Eos # (Auto) 0.3, Baso # (Auto) 0.1 09/29/21 19:57: Sodium 135 L, Potassium 2.7 L*, Chloride 102, Carbon Dioxide 29, Anion Gap 6.7, BUN 12, Creatinine 1.00, Estimated Creat Clear 51, Estimated GFR 73, Est GFR ( Amer) 89, Glucose 99, Calcium 8.6, Total Bilirubin 0.6, AST 47, ALT 22, Alkaline Phosphatase 147 H, Total Protein 5.7 L, Albumin 2.9 L, Globulin 2.8, Albumin/Globulin Ratio 1.0 L 09/29/21 21:20: Urine Color Yellow, Urine Appearance Clear, Urine pH 8.0, Ur Specific [place] 1.015, Urine Protein Trace, Urine Glucose (UA) Negative, Urine Ketones Negative, Urine Blood 2+, Urine Nitrate Negative, Urine Bilirubin Negative, Urine Urobilinogen 0.2, Ur Leukocyte Esterase 1+ A, Urine RBC 50-100, Urine WBC 20-50, Ur Squamous Epith Cells 3-5, Urine Bacteria 1+ 09/29/21 21:45: Troponin I 0.34 H 09/29/21 22:32: SARS-CoV-2 (PCR) Not detected, Influenza A Untype (PCR) Not detected, Influenza Type B (PCR) Not detected 09/30/21 02:27: Troponin I 0.32 H 09/30/21 06:34: WBC 11.1 H, RBC 2.89 L, Hgb 8.4 L D, Hct 26.8 L, MCV 92.8, MCH 29.0, MCHC 31.2 L, RDW 14.2, Plt Count 312, MPV 8.1, Neut % (Auto) 81.9 H, Lymph % (Auto) 8.8 L, [place] % (Auto) 4.5, Eos % (Auto) 4.4, Baso % (Auto) 0.4, Neut # (Auto) 9.1 H, Lymph # (Auto) 1.0, [place] # (Auto) 0.5, Eos # (Auto) 0.5 H, Baso # (Auto) 0.0 09/30/21 06:34: Sodium 140, Potassium 3.3 L D, Chloride 109 H, Carbon Dioxide 26, Anion Gap 8.3, BUN 11, Creatinine 0.90, Estimated Creat Clear 49, Estimated GFR 83, Est GFR ( Amer) 100, Glucose 84, Calcium 8.4, Magnesium 1.7 Medical History: Reports:: Hyperlipidemia, Hypertension, Kidney Stones, Transient Ischemic Attacks (TIA) Denies:: Cancer, Diabetes Mellitus Type 1, Diabetes Mellitus Type 2, MRSA Assessment and Plan (1) CVA (cerebral vascular accident) Status: Suspected Category: Medical Code(s): I63.9 - Cerebral infarction, unspecified (2) Elevated troponin Status: Acute Category: Medical Code(s): R77.8 - Other specified abnormalities of plasma proteins (3) Hypokalemia Status: Acute Category: Medical Code(s): E87.6 - Hypokalemia (4) SIRS (systemic inflammatory response syndrome) Status: Resolved Category: Medical Code(s): R65.10 - Systemic inflammatory response syndrome (SIRS) of non-infectious origin without acute organ dysfunction (5) UTI (urinary tract infection) Status: Acute Qualifiers: Qualified Code(s): N39.0
--- NOTE | 2021-09-30 11:32 | HMH.PTEV ---
Physical Therapy Evaluation Rehab PT IP Evaluation Start: 09/30/21 07:24 Freq: ONCE Status: Active Protocol: Document 09/30/21 11:25 PHORNE (Rec: 09/30/21 11:32 PHORNE [id number]) Subjective/History History History 71 yowm [facility] and poss CVA with L hemiparesis which appears to be new. He lives with family and was independently ambulatory with a walker prior to adm. Subjective Subjective Currently he reports feeling better, but remains weak on L UE and LE. Rehab PT IP Eval Objective Appearance Patient Behavior Appropriate Patient Orientation Person,Place,Time Difficulty following instructions none Speech Pattern Clear Ambulation Patient Able to Ambulate Yes Ambulation Observation IP General Gait Pattern Observation Shuffling Step Ambulation Distance (feet) 3 Ambulation Assistive Device None Ambulation Ability Minimal x 2 (25% assist) Balance Ability to Arise Able, uses arms to help Sitting Balance Leans or slides in chair Standing Balance Unsteady Dynamic Sitting Balance Ability Fair Dynamic Standing Balance Ability Poor Transfers Bed Transfer Ability Minimal x 2 (25% assist) Chair Transfer Ability Minimal x 2 (25% assist) Sit to Stand Bed Transfer Ability Minimal x 2 (25% assist) Sit to Stand Chair Transfer Ability Minimal x 2 (25% assist) ROM LLE PT ROM Status ABN Abnormal ROM Comment increased spacticity LUE PT ROM Status ABN Abnormal ROM Comment increased spacticity MMT LUE PT MMT ABN Abnormal MMT Grade grossly 3/5 LLE PT MMT ABN Abnormal MMT Grade grossly 3/5 Rehab PT IP prob,goals,plan Problems Date of Evaluation: 09/30/21 PT IP Problems Bed Mobility,Transfers,Gait Rehab Potential Rehab Potential Good Plan PT Intervention Plan Bed Mobility,Transfers,Gait, Therapeutic Exercise PT Plan Frequency BID Duration LOS Discharge Goals Bed Transfer Ability Minimal x 1 (25% assist) Sit to Stand Chair Transfer Ability Minimal x 1 (25% assist) Ambulation Assistive Device Rolling Walker Ambulation Distance (feet) 6 Discharge Plan PT Discharge Plan Pt is currently most appropriate for rehab
--- NOTE | 2021-09-30 11:43 | HMH.OTEV ---
OT Inpatient Evaluation Rehab OT IP Evaluation Start: 09/30/21 07:24 Freq: ONCE Status: Complete Protocol: Document 09/30/21 11:[facility] (Rec: 09/30/21 11:43 [facility] [id number]) Rehab OT IP Assessment Subjective History Pt oriented x 3 on arrival. Pt agreeable to engage in therapy session. Pt was admitted on 09/30/21 due to weakness. The following information was copied from history and physical report: 71-year-old male presented to the emergency department with 3 days of weakness and loss of appetite. Patient normally ambulates with a walker but apparently had become so weak he cannot bear weight at home and his was essentially dragging or carrying him through the house. Patient tells me he had left leg weakness that was inhibiting his ability to ambulate. Patient has a history of TIA but claims that he had no symptoms from his previous TIA . I do not believe this is correct and will have to review office records. Patient reports sudden loss of appetite 3 days ago as well. He has not had fevers at home but did have a low-grade fever in the emergency department. Work-up in the ER revealed hypokalemia and a urinary tract infection. Patient was admitted for treatment of electrolyte imbalances and given IV Rocephin. Patient was also found to have troponin elevated at 0.4 however this was stable throughout the night on serial exams. Patient denies any chest pain or shortness of breath. This morning he reports some improvement in his generalized
--- NOTE | 2021-09-30 17:29 | HMH.DCSUM ---
General - General Admission date:: 09/30/21 Discharge date: 10/05/21 HPI HPI: 71-year-old male presented to the emergency department with 3 days of weakness and loss of appetite. Patient normally ambulates with a walker but apparently had become so weak he cannot bear weight at home and his was essentially dragging or carrying him through the house. Patient tells me he had left leg weakness that was inhibiting his ability to ambulate. 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 Patient reports sudden loss of appetite 3 days ago as well. He has not had fevers at home but did have a low-grade fever in the emergency department. Work-up in the ER revealed hypokalemia and a urinary tract infection. Patient was admitted for treatment of electrolyte imbalances and given IV Rocephin. Patient was also found to have troponin elevated at 0.4 however this was stable throughout the night on serial exams. Patient denies any chest pain or shortness of breath. This morning he reports some improvement in his generalized weakness. Hospital Course Hospital Course: Patient had significant new left arm and leg weakness. He had a history of TIA and stroke work-up was begun including CT of the head with and without contrast, CT angiogram of cerebral circulation, carotid duplex. There is no evidence of acute ischemic event and carotid Dopplers had less than 50% stenosis bilaterally of the internal carotid arteries. MRI of the brain with and without contrast was performed which revealed multiple infarcts suggestive of embolic events. Patient had elevated troponin level that remained stable on serial testing. Echocardiogram was ordered the morning of September 30 which revealed a left atrial/mitral valve growth/vegetation. Echocardiogram was reviewed by cardiology and cardiology consultation was placed. Appearance of this abnormal growth raise concern for endocarditis patient was started on vancomycin and gentamicin. Dr. Aguilar spoke with the CT surgeon at the [facility] and patient was initially excepted in transfer for further evaluation of left atrial/mitral valve growth. 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 On October 03 patient had a sudden and abrupt change in neurologic status. Stroke alert was called. CT scan showed evidence of hemorrhage in the left occipital lobe at the site of previous embolic infarct. Patient was given protamine 10 mg IV, heparin was discontinued. Due to declining status patient was intubated. Initial CT scan showed area of hemorrhage measuring 3.6 cm. [facility] was contacted and neurosurgical service reviewed images. Surgical intervention was not required. Subsequent CT scan performed 4 hours later showed stable hemorrhage measuring 3.7 cm. Patient remains sedated on the ventilator until the day of transfer. Neurologically patient was withdrawing to tactile stimulus of the lower extremities. Pupils measure 3 mm in diameter and were reactive to 2 mm. Transfer was still requested but this change the nature of patient's transfer as he would need ICU bed. Patient was transferred on October 05 to the [facility]. Initial blood cultures done from admission did grow yeast with PCR indicating Carlene albicans. This raise possibility that abnormal left atrial growth could be fungal in nature and patient was started on micafungin 100 mg IV daily and later increased to 150 mg IV daily. Prior to initiation of micafungin therapy blood cultures were repeated. This repeat set of blood cultures also grew yeast with PCR positive for Carlene albicans. Patient remained on micafungin until transfer. Patient was admitted for treatment of UTI/SIRS and hypokalemia. For his UTI he was started on Rocephin. He has a history of Proteus UTI in late
--- NOTE | 2021-09-30 17:30 | PC.NURSE ---
at discussing POC with Pt and his family
[2021-09-30 18:31] LABS: Gentamicin,Random 11.1 ug/ml
--- NOTE | 2021-09-30 19:35 | PC.NURSE ---
Report to SERGIO Reveles
[2021-10-01] VITALS (9 sets, daily range): BP systolic 130–160; BP diastolic 76–90; PULSE 70–80; RESP 15–20; TEMP 36.6–37.7; O2SAT 95–99
--- NOTE | 2021-10-01 04:40 | PC.NURSE ---
NO ACUTE CHANGES FROM PREVIOUS ASSESSMENT. PT HAS RESTED ON AND OFF THIS SHIFT WITH NO C/O VOICED. PT HAS BEEN OFFERED TO BE TURNED Q2HR. PILLOW PLACED BETWEEN LEGS AND FOR SUPPORT WHEN PT IS ON HIS SIDE. VSS. WILL CONTINUE TO MONITOR.
[2021-10-01 06:42] LABS: Basophils # 0.1 K/mm3 (0-0.2); Basophils % 0.4 % (0.1-2.0); Eosinophils # 0.4 K/mm3 (0.0-0.4); Eosinophils % 2.7 % (0.1-12.0); Hematocrit 29.8 % (42.0-52.0); Hemoglobin 8.9 g/dL (14.1-18.0); Lymphocytes # 1.3 K/mm3 (0.7-4.5); Lymphocytes % 9.3 % (10-50); Mean Corpuscular HGB Conc 29.9 g/dL (31.8-35.4); Mean Corpuscular Volume 97.1 fl (80-94); Mean Platelet Volume 7.4 fl (7.4-10.4); Monocytes # 0.6 K/mm3 (0.1-1.0); Monocytes % 4.6 % (1.7-9.3); Neutrophils # 11.2 K/mm3 (1.8-7.8); Neutrophils % 82.9 % (37.0-80.0); Platelet Count 348 K/mm3 (142-424); Red Blood Count 3.07 M/mm3 (4.60-6.20); Red Cell Distribution Width 14.6 % (11.5-17.5); White Blood Count 13.5 K/mm3 (4.8-10.8)
[2021-10-01 06:53] LABS: Anion Gap 5.9 mEq/L (5-15); Blood Urea Nitrogen 10 mg/dl (9-20); Calcium 8.9 mg/dl (8.4-10.2); Carbon Dioxide 25 mmol/L (22.0-30.0); Chloride 112 mmol/L (98-107); Creatinine Clearance Estimated 48 mL/min (50-200); Estimated Glomerular Filt Rate 83 ml/min (>60); GFR (African American) 100 ML/MIN (>60); Glucose 90 mg/dl (74-100); Potassium 3.9 mmoL/L (3.5-5.1); Sodium 139 mmol/L (136-145)
--- NOTE | 2021-10-01 07:22 | P.PN_ITS ---
Internal Medicine - PN: Subj *Date: 10/01/21 *Time: 07:22 Interval history: Patient has no complaints this morning. No acute events overnight. Exam Vital signs and Labs for Last 24 Hours: Temp Pulse Resp BP Pulse Ox 98.3 F 77 16 143/85 H 97 10/01/21 04:00 10/01/21 04:00 10/01/21 04:00 10/01/21 04:00 10/01/21 04:00 Laboratory Results - last 24 hr 09/30/21 06:34: Hgb 8.4 L D 09/30/21 17:01: Random Gentamicin 11.1 10/01/21 01:05: Random Gentamicin 5.0 10/01/21 06:20: WBC 13.5 H, RBC 3.07 L, Hgb 8.9 L, Hct 29.8 L, MCV 97.1 H, MCH 29.0, MCHC 29.9 L, RDW 14.6, Plt Count 348, MPV 7.4, Neut % (Auto) 82.9 H, Lymph % (Auto) 9.3 L, [place] % (Auto) 4.6, Eos % (Auto) 2.7, Baso % (Auto) 0.4, Neut # (Auto) 11.2 H, Lymph # (Auto) 1.3, [place] # (Auto) 0.6, Eos # (Auto) 0.4, Baso # (Auto) 0.1 10/01/21 06:20: Sodium 139, Potassium 3.9, Chloride 112 H, Carbon Dioxide 25, Anion Gap 5.9, BUN 10, Creatinine 0.90, Estimated Creat Clear 48, Estimated GFR 83, Est GFR ( Amer) 100, Glucose 90, Calcium 8.9 I & O for Last 24 hours: Intake & Output 09/28/21 09/29/21 09/30/21 10/01/21 11:59 11:59 11:59 11:59 Intake Total 1170 / 1170 120 / 120 Output Total 1000 / 1000 400 / 400 Balance 170 / 170 -280 / -280 Weight 115 lb 9 oz 113 lb 4.8 oz Microbiology Reports for the Last 24 Hours: Microbiology 09/29/21 21:20 Urine,Clean Catch Urine Culture - Preliminary NO GROWTH AFTER 24 HOURS Narrative: Patient appears comfortable. He also appears depressed. Lungs are clear to auscultation. Heart has a regular rate and rhythm. Abdomen is soft and thin. 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 Assessment and Plan (1) CVA (cerebral vascular accident) Status: Suspected Category: Medical Code(s): I63.9 - Cerebral infarction, unspecified (2) Elevated troponin Status: Acute Category: Medical Code(s): R77.8 - Other specified abnormalities of plasma proteins (3) Hypokalemia Status: Acute Category: Medical Code(s): E87.6 - Hypokalemia (4) SIRS (systemic inflammatory response syndrome) Status: Resolved Category: Medical Code(s): R65.10 - Systemic inflammatory response syndrome (SIRS) of non-infectious origin without acute organ dysfunction (5) UTI (urinary tract infection) Status: Acute Qualifiers: Urinary tract infection type: site unspecified Hematuria presence: without hematuria Qualified Code(s): N39.0 - Urinary tract infection, site not specified Category: Medical Code(s): N39.0 - Urinary tract infection, site not specified (6) Mitral valve mass Status: Acute Category: Medical Code(s): 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 Patient is awaiting transfer for further assessment of his mitral valve mass. At present antibiotics to cover possible endocarditis will continue 2. Hypokalemia has been corrected 3. Urine culture showing no growth after 24 hours. Gentamicin should cover common urinary pathogens 4. Antiplatelet agents and anticoagulants for stroke are being held at this time due to anticipated surgery. 5. MRI of the brain will be ordered this morning although transfer will take precedence and if bed is available [facility]
--- NOTE | 2021-10-01 07:55 | MR_ITS ---
FINAL REPORT CLINICAL HISTORY: LEFT SIDED WEAKNESS, AMS, R/O STROKE 10ML PROHANCE INJECTED FINDINGS: Multiplanar MR imaging of the brain was performed without and with contrast. There is mild age-appropriate atrophy. Scattered foci of increased T2 signal are seen in the cerebral white matter that have a nonspecific appearance but likely represent mild chronic ischemic/gliotic changes. There is a wedge shaped area of restricted diffusion in the left cerebellar hemisphere measuring 14 mm consistent with an acute infarct. Several other punctate foci of restricted diffusion are seen involving the bilateral cerebral white matter and left occipital lobe measuring less than 1 cm consistent with additional smaller acute infarcts. The appearance is most worrisome for embolic infarcts. There is no evidence of intracranial hemorrhage or mass. No abnormal ventricular dilatation is identified. There is no evidence of shift of the midline structures. No abnormal extra-axial fluid collection is seen. No abnormal contrast enhancement is seen. Normal major vessel vascular flow voids are seen. There is moderate mucosal thickening of the left maxillary sinus. IMPRESSION: Multiple acute infarcts as detailed above, largest in the left cerebellar hemisphere. Reviewed, Interpreted and Dictated by Minesh Chadwick III, MD Transcribed by Ela Perez Authenticated by Minesh Chadwick III, MD on 10/01/2021 11:08:37 AM [facility]
--- NOTE | 2021-10-01 11:07 | P.PN_ITS ---
Subjective Date: 10/01/21 Time: 11:07 Principal diagnosis: Mitral valve mass Interval history: 71-year-old white male in bed in no acute distress. No complaints. Still awaiting transfer to . Exam Vital signs and Labs for Last 24 Hours: Temp Pulse Resp BP Pulse Ox 97.8 F 79 19 160/90 H 99 10/01/21 08:00 10/01/21 08:00 10/01/21 08:00 10/01/21 08:00 10/01/21 08:00 Laboratory Results - last 24 hr 09/30/21 17:01: Random Gentamicin 11.1 10/01/21 01:05: Random Gentamicin 5.0 10/01/21 06:20: WBC 13.5 H, RBC 3.07 L, Hgb 8.9 L, Hct 29.8 L, MCV 97.1 H, MCH 29.0, MCHC 29.9 L, RDW 14.6, Plt Count 348, MPV 7.4, Neut % (Auto) 82.9 H, Lymph % (Auto) 9.3 L, [place] % (Auto) 4.6, Eos % (Auto) 2.7, Baso % (Auto) 0.4, Neut # (Auto) 11.2 H, Lymph # (Auto) 1.3, [place] # (Auto) 0.6, Eos # (Auto) 0.4, Baso # (Auto) 0.1 10/01/21 06:20: Sodium 139, Potassium 3.9, Chloride 112 H, Carbon Dioxide 25, Anion Gap 5.9, BUN 10, Creatinine 0.90, Estimated Creat Clear 48, Estimated GFR 83, Est GFR ( Amer) 100, Glucose 90, Calcium 8.9 I & O for Last 24 hours: Intake & Output 09/28/21 09/29/21 09/30/21 10/01/21 11:59 11:59 11:59 11:59 Intake Total 1170 / 1170 120 / 120 Output Total 1000 / 1000 400 / 400 Balance 170 / 170 -280 / -280 Weight 115 lb 9 oz 113 lb 4.8 oz Microbiology Reports for the Last 24 Hours: Microbiology 09/29/21 21:20 Urine,Clean Catch Urine Culture - Preliminary - *Routine Respiratory Exam Present: CTA bilaterally - *Routine Cardiovascular Exam Present: RRR, murmur Progress Note: A&P (1) CVA (cerebral vascular accident) Status: Suspected (2) Elevated troponin Status: Acute (3) Hypokalemia Status: Acute (4) SIRS (systemic inflammatory response syndrome) Status: Resolved (5) UTI (urinary tract infection) Status: Acute (6) Mitral valve mass Status: Acute Assessment and Plan for All Diagnoses:: 1. CVA with mitral valve mass. Plans to transfer to Dr. Hammonds at for further treatment. Continuing on vancomycin and gentamicin at high doses for possible vegetation. Unable to anticoagulate due to recent CVA. 2. Anemia, suspected related to RBC destruction from mitral valve mass. 3. Hypertension, patient is on lisinopril 4. Hypokalemia, on replacement therapy 5. Hypothyroidism, on replacement therapy 6. Elevated troponin likely secondary to mitral valve mass. Normal LV function noted on echo.
[2021-10-01 12:26] LABS: Haptoglobin 92 mg/dL (34-355)
--- NOTE | 2021-10-01 14:21 | PC.NURSE ---
rounded on patient. no concerns were voiced. did ask about getting a scuds pump for vte, and a bath. scuds pump placed and tech stated they would be giving patient a bath.
--- NOTE | 2021-10-01 17:46 | PC.NURSE ---
no changes on my shift. patient is still awaiting bed at . lungs cta and bowel sounds active x4. pt still noted to be very weak. redness noted to buttock- pink polymem dressing applied. pt has been turned Q2. no current need. family at bedside
[2021-10-02] VITALS (7 sets, daily range): BP systolic 124–158; BP diastolic 72–93; PULSE 67–90; RESP 16–20; TEMP 36.6–37.9; O2SAT 98–100
[2021-10-02 06:44] LABS: Basophils # 0.1 K/mm3 (0-0.2); Basophils % 0.5 % (0.1-2.0); Eosinophils # 0.5 K/mm3 (0.0-0.4); Eosinophils % 3.7 % (0.1-12.0); Hematocrit 28.2 % (42.0-52.0); Hemoglobin 8.9 g/dL (14.1-18.0); Lymphocytes # 1.4 K/mm3 (0.7-4.5); Lymphocytes % 10.9 % (10-50); Mean Corpuscular HGB Conc 31.5 g/dL (31.8-35.4); Mean Corpuscular Hemoglobin 28.7 pg (27.0-31.2); Mean Corpuscular Volume 91.1 fl (80-94); Mean Platelet Volume 7.9 fl (7.4-10.4); Monocytes # 0.7 K/mm3 (0.1-1.0); Monocytes % 5.8 % (1.7-9.3); Neutrophils # 9.8 K/mm3 (1.8-7.8); Neutrophils % 79.1 % (37.0-80.0); Platelet Count 333 K/mm3 (142-424); Red Cell Distribution Width 14.4 % (11.5-17.5); White Blood Count 12.3 K/mm3 (4.8-10.8)
[2021-10-02 06:53] LABS: Anion Gap 6.4 mEq/L (5-15); Blood Urea Nitrogen 13 mg/dl (9-20); Carbon Dioxide 25 mmol/L (22.0-30.0); Chloride 111 mmol/L (98-107); Creatinine Clearance Estimated 48 mL/min (50-200); Estimated Glomerular Filt Rate 73 ml/min (>60); GFR (African American) 89 ML/MIN (>60); Glucose 95 mg/dl (74-100); Potassium 4.4 mmoL/L (3.5-5.1); Sodium 138 mmol/L (136-145)
--- NOTE | 2021-10-02 07:12 | HMH.ACPN2 ---
Internal Medicine - PN: Subj *Date: 10/02/21 *Time: 07:12 Interval history: No acute events over the last 24 hours. Patient reports feeling a little stronger with some improved appetite. Patient did participate with physical therapy yesterday. MRI of the brain yesterday showed multiple small infarcts consistent with embolic events. A single blood culture returned overnight growing yeast with PCR positive Carlene albicans Exam Vital signs and Labs for Last 24 Hours: Temp Pulse Resp BP Pulse Ox 97.9 F 71 18 124/79 98 10/02/21 04:00 10/02/21 04:00 10/02/21 04:00 10/02/21 04:00 10/02/21 04:00 Laboratory Results - last 24 hr 09/30/21 10:20: Haptoglobin 92 10/02/21 05:56: WBC 12.3 H, RBC 3.10 L, Hgb 8.9 L, Hct 28.2 L, MCV 91.1, MCH 28.7, MCHC 31.5 L, RDW 14.4, Plt Count 333, MPV 7.9, Neut % (Auto) 79.1, Lymph % (Auto) 10.9, [place] % (Auto) 5.8, Eos % (Auto) 3.7, Baso % (Auto) 0.5, Neut # (Auto) 9.8 H, Lymph # (Auto) 1.4, [place] # (Auto) 0.7, Eos # (Auto) 0.5 H, Baso # (Auto) 0.1 10/02/21 05:56: Sodium 138, Potassium 4.4, Chloride 111 H, Carbon Dioxide 25, Anion Gap 6.4, BUN 13 D, Creatinine 1.00, Estimated Creat Clear 48, Estimated GFR 73, Est GFR ( Amer) 89, Glucose 95, Calcium 9.0 I & O for Last 24 hours: Intake & Output 09/29/21 09/30/21 10/01/21 10/02/21 11:59 11:59 11:59 11:59 Intake Total 1170 / 1170 120 / 120 480 / 480 Output Total 1000 / 1000 400 / 400 425 / 425 Balance 170 / 170 -280 / -280 55 / 55 Weight 115 lb 9 oz 113 lb 4.8 oz Microbiology Reports for the Last 24 Hours: Microbiology 09/29/21 20:21 Blood Blood Culture - Preliminary NO GROWTH AFTER 48 HOURS 09/29/21 20:21 Blood Blood Culture - Preliminary 09/29/21 21:20 Urine,Clean Catch Urine Culture - Preliminary Narrative: Patient is awake and alert. Patient looks like he feels better. Lungs are clear to auscultation. Heart has a regular rate and rhythm. Abdomen is thin and soft. 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 Medical Code(s): E87.6 - Hypokalemia (5) SIRS (systemic inflammatory response syndrome) Status: Resolved Category: Medical Code(s): R65.10 - Systemic inflammatory response syndrome (SIRS) of non-infectious origin without acute organ dysfunction (6) UTI (urinary tract infection) Status: Acute Qualifiers: Urinary tract infection type: site unspecified Hematuria presence: without hematuria Qualified Code(s): N39.0 - Urinary tract infection, site not specified Category: Medical Code(s): N39.0 - Urinary tract infection, site not specified - Assessment and plan all Dx Assessment and Plan for all problems:: 1. Heparin drip for CVA and to prevent any further embolic phenomena 2. Start micafungin for his suspected fungemia 3. Continue Vanco and gent to cover bacterial endocarditis 4. Patient will be transferred to once bed becomes available
[2021-10-02 08:21] LABS: PTT Heparin (inpatient only) 29.6 Seconds (23.6-34.0)
--- NOTE | 2021-10-02 11:11 | PC.NURSE ---
Spoke with Melissa at [facility] and uptdated pt's status. Melissa reported that there are still no beds available at this time and will let us know as soon as one becomes available, notified pt and family.
[2021-10-02 12:16] LABS: Gentamicin,Trough 3.1 ug/ml (0.0-2.0)
[2021-10-02 12:38] LABS: PTT Heparin (inpatient only) 34.3 Seconds (23.6-34.0)
--- NOTE | 2021-10-02 13:06 | HMH.PNCARD ---
Subjective Date: 10/02/21 Time: 13:06 Principal diagnosis: Mitral valve mass Interval history: 71-year-old white male in bed in no acute distress. Denies any chest pain, pressure or tightness. He does have a headache. He has been started on heparin for multiple infarct areas in the brain noted on MRI. He is also been started on antifungal and for PCR showing Carlene albicans. Still awaiting transfer to . Exam Vital signs and Labs for Last 24 Hours: Temp Pulse Resp BP Pulse Ox 98.3 F 72 16 145/87 H 99 10/02/21 12:23 10/02/21 12:23 10/02/21 12:23 10/02/21 12:23 10/02/21 12:23 Laboratory Results - last 24 hr 10/02/21 05:56: WBC 12.3 H, RBC 3.10 L, Hgb 8.9 L, Hct 28.2 L, MCV 91.1, MCH 28.7, MCHC 31.5 L, RDW 14.4, Plt Count 333, MPV 7.9, Neut % (Auto) 79.1, Lymph % (Auto) 10.9, [place] % (Auto) 5.8, Eos % (Auto) 3.7, Baso % (Auto) 0.5, Neut # (Auto) 9.8 H, Lymph # (Auto) 1.4, [place] # (Auto) 0.7, Eos # (Auto) 0.5 H, Baso # (Auto) 0.1 10/02/21 05:56: Sodium 138, Potassium 4.4, Chloride 111 H, Carbon Dioxide 25, Anion Gap 6.4, BUN 13 D, Creatinine 1.00, Estimated Creat Clear 48, Estimated GFR 73, Est GFR ( Amer) 89, Glucose 95, Calcium 9.0 10/02/21 07:57: APTT 29.6 10/02/21 11:45: Gentamicin Trough 3.1 H* 10/02/21 11:45: APTT 34.3 H I & O for Last 24 hours: Intake & Output 09/30/21 10/01/21 10/02/21 10/03/21 11:59 11:59 11:59 11:59 Intake Total 1170 / 1170 120 / 120 540 / 540 Output Total 1000 / 1000 400 / 400 425 / 425 Balance 170 / 170 -280 / -280 115 / 115 Weight 115 lb 9 oz 113 lb 4.8 oz Microbiology Reports for the Last 24 Hours: Microbiology 09/29/21 20:21 Blood Blood Culture - Preliminary 09/29/21 21:20 Urine,Clean Catch Urine Culture - Preliminary 09/29/21 20:21 Blood Blood Culture - Preliminary NO GROWTH AFTER 48 HOURS - Constitutional no acute distress - *Routine Respiratory Exam Present: CTA bilaterally - *Routine Cardiovascular Exam Present: RRR, murmur Progress Note: A&P (1) CVA (cerebral vascular accident) Status: Acute (2) Mitral valve mass Status: Acute (3) Elevated troponin Status: Acute (4) Hypokalemia Status: Acute (5) SIRS (systemic inflammatory response syndrome) Status: Resolved (6) UTI (urinary tract infection) Status: Acute Assessment and Plan for All Diagnoses:: 1. CVA with mitral valve mass. Plans to transfer to Dr. Hammonds at for further treatment. Continuing on vancomycin and gentamicin at high doses for possible vegetation. Heparin started due to multiple infarcts on MRI of the brain. 2. Anemia, stable 3. Hypertension, controlled 4. Hypokalemia, resolved 5. Hypothyroidism, on replacement therapy 6. Elevated troponin likely secondary to mitral valve mass. Normal LV function noted on echo. 7. 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
--- NOTE | 2021-10-02 14:02 | HMH.PHACONS ---
- Pharmacy Consult Date: 10/02/21 Time: 14:02 Referring provider: DR. LEONARDO Reason for Consult:: GENTAMICIN LEVEL AND DOSING CHANGE Allergies and ADEs:: Allergies Allergy/AdvReac Type Severity Reaction Status Date / Time Sulfa (Sulfonamide Allergy Unknown Verified 06/25/21 13:25 Antibiotics) Home Medications:: Home Medications Medication Instructions Recorded Confirmed Type aspirin 81 mg tablet,delayed 81 mg PO DAILY tab 10/20/17 09/29/21 History release fenofibrate nanocrystallized 145 145 mg PO DAILY tab 10/20/17 09/29/21 History mg tablet meloxicam 15 mg tablet 15 mg PO DAILY tab 10/20/17 09/29/21 History levothyroxine 88 mcg tablet 88 mcg PO DAILY tab 08/06/20 09/29/21 History Benazepril HCl [Lotensin] 10 mg PO DAILY 09/29/21 09/29/21 History Mag Hydrox/Aluminum Hyd/Simeth 10 ml PO DAILYP PRN 09/29/21 09/29/21 History [Mylanta Maximum Strength Pkt] Oxybutynin Chloride [Oxybutynin 10 mg PO DAILY 09/29/21 09/29/21 History Chloride ER] Height: 1.6 m Weight: 51.392 kg Laboratory Results:: Laboratory Results - last 24 hr 10/02/21 05:56: WBC 12.3 H, RBC 3.10 L, Hgb 8.9 L, Hct 28.2 L, MCV 91.1, MCH 28.7, MCHC 31.5 L, RDW 14.4, Plt Count 333, MPV 7.9, Neut % (Auto) 79.1, Lymph % (Auto) 10.9, [place] % (Auto) 5.8, Eos % (Auto) 3.7, Baso % (Auto) 0.5, Neut # (Auto) 9.8 H, Lymph # (Auto) 1.4, [place] # (Auto) 0.7, Eos # (Auto) 0.5 H, Baso # (Auto) 0.1 10/02/21 05:56: Sodium 138, Potassium 4.4, Chloride 111 H, Carbon Dioxide 25, Anion Gap 6.4, BUN 13 D, Creatinine 1.00, Estimated Creat Clear 48, Estimated GFR 73, Est GFR ( Amer) 89, Glucose 95, Calcium 9.0 10/02/21 07:57: APTT 29.6 10/02/21 11:45: Gentamicin Trough 3.1 H* 10/02/21 11:45: APTT 34.3 H Medical History: Reports:: Hyperlipidemia, Hypertension, Kidney Stones, Transient Ischemic Attacks (TIA) Denies:: Cancer, Diabetes Mellitus Type 1, Diabetes Mellitus Type 2, MRSA 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 Medical Code(s): E87.6 - Hypokalemia (5) SIRS (systemic inflammatory response syndrome) Status: Resolved Category: Medical Code(s): R65.10 - Systemic inflammatory response syndrome (SIRS) of non-infectious origin without acute organ dysfunction (6) UTI (urinary tract infection) Status: Acute Qualifiers: Urinary tract infection type: site unspecified Hematuria presence: without hematuria Qualified Code(s): N39.0 - Urinary tract infection, site not specified Category: Medical Code(s): N39.0 - Urinary tract infection, site not specified - Assessment and plan all Dx Assessment and Plan for all problems:: PATIENT'S GENTAMICIN TROUGH LEVEL WAS 3.1 MCG/ML TODAY PRIOR TO DOSE. RECOMMEND HOLDING DOSE AT THIS TIME. WILL OBTAIN TROUGH LEVEL IN THE AM PRIOR TO DOSE NOW SCHEDULED FOR 0800 ON 10/03/21 FOR GENTAMICIN 280 MG Q36H. SCHEDULED VANCOMYCIN TROUGH LEVEL FOR 0800 WELL WHICH IS ~30 MIN EARLY FOR TROUGH LEVEL.
--- NOTE | 2021-10-02 14:19 | HMH.PHAHEP ---
[facility] Pharmacy Heparin Dosing - Demographic Data Admission date:: 09/30/21 Date: 10/02/21 Time: 08:00 Allergies/Adverse Reactions: Allergies Allergy/AdvReac Type Severity Reaction Status Date / Time Sulfa (Sulfonamide Allergy Unknown Verified 06/25/21 13:25 Antibiotics) Height: 1.6 m Weight: 51.392 kg - Indication Medication therapy:: Heparin Patient Problems: Current Active Problems UTI (urinary tract infection) (Acute) Hypokalemia (Acute) Elevated troponin (Acute) CVA (cerebral vascular accident) (Acute) Mitral valve mass (Acute) CVA?: Yes Bleeding problem?: No Kidney disease?: No [place]?: No Desired PTT range:: Other Comments:: 50-75 CVA NO BOLUS - Labs Anticoagulation Lab Results:: 10/02/21 05:56 Hgb 8.9 L Hct 28.2 L Plt Count 333 - Monitoring Dose Monitor 1 Date: 10/02/21 Time: 08:00 PTT Result:: PTT 29.6 Infusion Rate:: START HEPARIN DRIP AT 650 UNITS/HR (~12 UNITS PER KG), NO BOLUS. Dose Monitor 2 Date: 10/02/21 Time: 11:45 PTT Result:: PTT 34.3 Infusion Rate:: PTT DRAWN EARLY. INCREASING DOSE TO 800 UNITS/HR (INCREASE OF 3 UNITS/KG) Dose Monitor 3 Date: 10/02/21 Time: 18:00 PTT Result:: 44.3 Infusion Rate:: INCREASED TO 850 UNITS/HR. Dose Monitor 4 Date: 10/03/21 Time: 00:14 PTT Result:: PTT 35.2 Infusion Rate:: INCREASED INFUSION OF HEPARIN RATE TO 1000 UNITS/HR. Dose Monitor 5 Date: 10/03/21 Time: 05:33 PTT Result:: 57.1 Infusion Rate:: CONTINUE WITH CURRENT DOSE OF HEPARIN 1000 UNITS/HR. - Core Measures Is INR > or = 2 at discharge?: No Most Recent Labs:: Laboratory Results - last 24 hr 10/02/21 05:56: WBC 12.3 H, RBC 3.10 L, Hgb 8.9 L, Hct 28.2 L, MCV 91.1, MCH 28.7, MCHC 31.5 L, RDW 14.4, Plt Count 333, MPV 7.9, Neut % (Auto) 79.1, Lymph % (Auto) 10.9, [place] % (Auto) 5.8, Eos % (Auto) 3.7, Baso % (Auto) 0.5, Neut # (Auto) 9.8 H, Lymph # (Auto) 1.4, [place] # (Auto) 0.7, Eos # (Auto) 0.5 H, Baso # (Auto) 0.1 10/02/21 05:56: Sodium 138, Potassium 4.4, Chloride 111 H, Carbon Dioxide 25, Anion Gap 6.4, BUN 13 D, Creatinine 1.00, Estimated Creat Clear 48, Estimated GFR 73, Est GFR ( Amer) 89, Glucose 95, Calcium 9.0 10/02/21 07:57: APTT 29.6 10/02/21 11:45: Gentamicin Trough 3.1 H* 10/02/21 11:45: APTT 34.3 H Were Heparin and Warfarin started on the same day?: No If not, why?: HEPARIN STOPPED DUE TO BLEED. PROTAMINE GIVEN.
--- NOTE | 2021-10-02 14:53 | PC.NURSE ---
patient sitting up in bed with family at bedside. assisted with lunch tray, and obtained extra crackers for patient. family is eager for transfer to , currently no beds still. no questions or concerns noted at this time
--- NOTE | 2021-10-02 17:57 | PC.NURSE ---
1756-pt has rested well t/o shift, family at bedside, vss, pt daljit heparin drip @ 16ml's/hr, pt has remained oriented t/o shift, pt has not had bm this shift, continues to have periods of incontinence but attempts to use urinal, pt denies chest pain or soa, vss and o2 sats stable on room air, pt's coccyx/bottom remains reddened w/out open areas-applying cream and polynem dressings as needed, pt turninq q2h and daljit well, pt has ate well t/o shift, pt has remains nsr on telemetry, no acute distress noted at this time, will continue to monitor
[2021-10-02 18:32] LABS: PTT Heparin (inpatient only) 44.3 Seconds (23.6-34.0)
[2021-10-03] VITALS (20 sets, daily range): BP systolic 96–182; BP diastolic 65–102; PULSE 70–105; RESP 18–26; TEMP 36.6–37.6; O2SAT 96–100
[2021-10-03 01:07] LABS: PTT Heparin (inpatient only) 35.2 Seconds (23.6-34.0)
--- NOTE | 2021-10-03 01:50 | PC.NURSE ---
19:30- Spoke with Justine at night watch to report PTT 44.3, received order to increase drip to 850 units. 01:30- Spoke with Omar at night watch to report PTT 35.2, received order to increase drip to 1,000 units. Next PTT to be drawn at 06:00.
[2021-10-03 05:52] LABS: Basophils # 0.1 K/mm3 (0-0.2); Basophils % 0.5 % (0.1-2.0); Eosinophils # 0.3 K/mm3 (0.0-0.4); Eosinophils % 2.3 % (0.1-12.0); Hematocrit 26.6 % (42.0-52.0); Hemoglobin 8.1 g/dL (14.1-18.0); Lymphocytes # 0.9 K/mm3 (0.7-4.5); Mean Corpuscular HGB Conc 30.5 g/dL (31.8-35.4); Mean Corpuscular Hemoglobin 28.3 pg (27.0-31.2); Mean Corpuscular Volume 92.6 fl (80-94); Mean Platelet Volume 7.9 fl (7.4-10.4); Monocytes # 0.6 K/mm3 (0.1-1.0); Monocytes % 3.9 % (1.7-9.3); Neutrophils # 12.9 K/mm3 (1.8-7.8); Neutrophils % 87.2 % (37.0-80.0); Platelet Count 335 K/mm3 (142-424); Red Blood Count 2.87 M/mm3 (4.60-6.20); Red Cell Distribution Width 14.7 % (11.5-17.5); White Blood Count 14.8 K/mm3 (4.8-10.8)
[2021-10-03 05:58] LABS: Anion Gap 9.1 mEq/L (5-15); Blood Urea Nitrogen 13 mg/dl (9-20); Calcium 8.7 mg/dl (8.4-10.2); Carbon Dioxide 21 mmol/L (22.0-30.0); Chloride 110 mmol/L (98-107); Creatinine Clearance Estimated 43 mL/min (50-200); Estimated Glomerular Filt Rate 66 ml/min (>60); GFR (African American) 79 ML/MIN (>60); Glucose 93 mg/dl (74-100); MANUAL DIFFERENTIAL MANUAL DIFFERENTIAL (MANUAL DIFF); PTT Heparin (inpatient only) 57.1 Seconds (23.6-34.0); Potassium 4.1 mmoL/L (3.5-5.1); Sodium 136 mmol/L (136-145)
[2021-10-03 07:10] LABS: Eosinophils % 2 % (0-3); Lymphocytes % 3 % (10-50); Monocytes % 2 % (2-9); Neutrophils % 93 % (42-76); Total Cells Counted 100
--- NOTE | 2021-10-03 07:10 | PC.NURSE ---
Called night watch to report PTT 57.1, No changes made to rate at this time per Joseph.
[2021-10-03 07:11] LABS: Platelet Estimate Normal; RBC Morphology Normal
--- NOTE | 2021-10-03 07:53 | HMH.ACPN2 ---
Internal Medicine - PN: Subj *Date: 10/03/21 *Time: 07:53 Interval history: Patient complains of sore throat this morning and upset stomach after eating supper yesterday evening. He continues to participate with physical therapy. He remains afebrile. Exam Vital signs and Labs for Last 24 Hours: Temp Pulse Resp BP Pulse Ox 98 F 74 18 150/75 H 96 10/03/21 04:00 10/03/21 04:00 10/03/21 04:00 10/03/21 04:00 10/03/21 04:00 Laboratory Results - last 24 hr 10/02/21 07:57: APTT 29.6 10/02/21 11:45: Gentamicin Trough 3.1 H* 10/02/21 11:45: APTT 34.3 H 10/02/21 18:01: APTT 44.3 H 10/03/21 00:14: APTT 35.2 H 10/03/21 05:33: WBC 14.8 H, RBC 2.87 L, Hgb 8.1 L, Hct 26.6 L, MCV 92.6, MCH 28.3, MCHC 30.5 L, RDW 14.7, Plt Count 335, MPV 7.9, Neut % (Auto) 87.2 H, Lymph % (Auto) 6.0 L, [place] % (Auto) 3.9, Eos % (Auto) 2.3, Baso % (Auto) 0.5, Neut # (Auto) 12.9 H, Lymph # (Auto) 0.9, [place] # (Auto) 0.6, Eos # (Auto) 0.3, Baso # (Auto) 0.1, Total Counted 100, Neutrophils % (Manual) 93 H, Lymphocytes % (Manual) 3 L, Monocytes % (Manual) 2, Eosinophils % (Manual) 2, Platelet Estimate Normal, RBC Morphology Normal 10/03/21 05:33: Sodium 136, Potassium 4.1, Chloride 110 H, Carbon Dioxide 21 L, Anion Gap 9.1, BUN 13, Creatinine 1.10, Estimated Creat Clear 43, Estimated GFR 66, Est GFR ( Amer) 79, Glucose 93, Calcium 8.7 10/03/21 05:33: APTT 57.1 H* I & O for Last 24 hours: Intake & Output 09/30/21 10/01/21 10/02/21 10/03/21 11:59 11:59 11:59 11:59 Intake Total 1170 / 1170 120 / 120 540 / 540 120 / 120 Output Total 1000 / 1000 400 / 400 425 / 425 250 / 250 Balance 170 / 170 -280 / -280 115 / 115 -130 / -130 Weight 115 lb 9 oz 113 lb 4.8 oz 113 lb 4.799 oz Microbiology Reports for the Last 24 Hours: Microbiology 09/29/21 20:21 Blood Blood Culture - Preliminary 09/29/21 21:20 Urine,Clean Catch Urine Culture - Preliminary Narrative: Patient is in no distress. Oropharynx is dry but there is no erythema. Neck is supple. Lungs are clear. Heart has a regular rate and rhythm. Abdomen is soft and nontender. 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 Medical Code(s): E87.6 - Hypokalemia (5) SIRS (systemic inflammatory response syndrome) Status: Resolved Category: Medical Code(s): R65.10 - Systemic inflammatory response syndrome (SIRS) of non-infectious origin without acute organ dysfunction (6) UTI (urinary tract infection) Status: Acute Qualifiers: Urinary tract infection type: site unspecified Hematuria presence: without hematuria Qualified Code(s): N39.0 - Urinary tract infection, site not specified Category: Medical Code(s): N39.0 - Urinary tract infection, site not specified - Assessment and plan all Dx Assessment and Plan for all problems:: 1. 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 Continue Vanco and gent to cover bacterial endocarditis and micafungin to cover fungal endocarditis 3. Patient will be transferred to [facility] when bed becomes available 4. Continue PT services while inpatient
[2021-10-03 08:33] LABS: Gentamicin,Trough 1.1 ug/ml (0.0-2.0)
--- NOTE | 2021-10-03 10:26 | P.PN_ITS ---
Internal Medicine - PN: Subj *Date: 10/03/21 *Time: 10:26 Exam Vital signs and Labs for Last 24 Hours: Temp Pulse Resp BP Pulse Ox 98.1 F 88 18 154/86 H 98 10/03/21 08:00 10/03/21 08:00 10/03/21 08:00 10/03/21 08:00 10/03/21 08:00 Laboratory Results - last 24 hr 09/29/21 21:20: Urine Color Yellow, Urine Appearance Clear, Urine pH 8.0, Ur Specific [place] 1.015, Urine Protein Trace, Urine Glucose (UA) Negative, Urine Ketones Negative, Urine Blood 2+, Urine Nitrate Negative, Urine Bilirubin Negative, Urine Urobilinogen 0.2, Ur Leukocyte Esterase 1+ A, Urine RBC 50-100, Urine WBC 20-50, Ur Squamous Epith Cells 3-5, Urine Bacteria 1+ 10/02/21 11:45: Gentamicin Trough 3.1 H* 10/02/21 11:45: APTT 34.3 H 10/02/21 18:01: APTT 44.3 H 10/03/21 00:14: APTT 35.2 H 10/03/21 05:33: WBC 14.8 H, RBC 2.87 L, Hgb 8.1 L, Hct 26.6 L, MCV 92.6, MCH 28.3, MCHC 30.5 L, RDW 14.7, Plt Count 335, MPV 7.9, Neut % (Auto) 87.2 H, Lymph % (Auto) 6.0 L, [place] % (Auto) 3.9, Eos % (Auto) 2.3, Baso % (Auto) 0.5, Neut # (Auto) 12.9 H, Lymph # (Auto) 0.9, [place] # (Auto) 0.6, Eos # (Auto) 0.3, Baso # (Auto) 0.1, Total Counted 100, Neutrophils % (Manual) 93 H, Lymphocytes % (Manual) 3 L, Monocytes % (Manual) 2, Eosinophils % (Manual) 2, Platelet Estimate Normal, RBC Morphology Normal 10/03/21 05:33: Sodium 136, Potassium 4.1, Chloride 110 H, Carbon Dioxide 21 L, Anion Gap 9.1, BUN 13, Creatinine 1.10, Estimated Creat Clear 43, Estimated GFR 66, Est GFR ( Amer) 79, Glucose 93, Calcium 8.7 10/03/21 05:33: APTT 57.1 H* 10/03/21 07:52: Gentamicin Trough 1.1 I & O for Last 24 hours: Intake & Output 09/30/21 10/01/21 10/02/21 10/03/21 23:59 23:59 23:59 23:59 Intake Total 1290 / 1290 480 / 480 180 / 180 Output Total 1000 / 1000 625 / 675 200 / 450 250 / 250 Balance 290 / 290 -145 / -195 -20 / -270 -250 / -250 Weight 52 kg 51.392 kg 51.392 kg Microbiology Reports for the Last 24 Hours: Microbiology 09/29/21 20:21 Blood Blood Culture - Preliminary Yeast 09/29/21 21:20 Urine,Clean Catch Urine Culture - Preliminary Gram Negative Rods 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 Medical Code(s): E87.6 - Hypokalemia (5) SIRS (systemic inflammatory response syndrome) Status: Resolved Category: Medical Code(s): R65.10 - Systemic inflammatory response syndrome (SIRS) of non-infectious origin without acute organ dysfunction (6) UTI (urinary tract infection) Status: Acute Qualifiers: Urinary tract infection type: site unspecified Hematuria presence: without hematuria Qualified Code(s): N39.0 - Urinary tract infection, site not specified Category: Medical Code(s): N39.0 - Urinary tract infection, site not specified The patient's infection will respond to the chosen ABx?: Yes (empiric therapy for endocarditis) Is the patient receiving the right drug, dose, and route?: Yes Could a more targeted ABx be ordered?: No (blood cultures still pendi
[2021-10-03 11:33] LABS: Vancomycin,Trough 5.7 ug/mL (5.0-10.0)
--- NOTE | 2021-10-03 12:01 | HMH.PHACONS ---
- Pharmacy Consult Date: 10/03/21 Time: 12:01 Referring provider: DR. BUCHANAN Reason for Consult:: GENTAMICIN AND VANCOMYCIN LEVELS Allergies and ADEs:: Allergies Allergy/AdvReac Type Severity Reaction Status Date / Time Sulfa (Sulfonamide Allergy Unknown Verified 06/25/21 13:25 Antibiotics) Home Medications:: Home Medications Medication Instructions Recorded Confirmed Type aspirin 81 mg tablet,delayed 81 mg PO DAILY tab 10/20/17 09/29/21 History release fenofibrate nanocrystallized 145 145 mg PO DAILY tab 10/20/17 09/29/21 History mg tablet meloxicam 15 mg tablet 15 mg PO DAILY tab 10/20/17 09/29/21 History levothyroxine 88 mcg tablet 88 mcg PO DAILY tab 08/06/20 09/29/21 History Benazepril HCl [Lotensin] 10 mg PO DAILY 09/29/21 09/29/21 History Mag Hydrox/Aluminum Hyd/Simeth 10 ml PO DAILYP PRN 09/29/21 09/29/21 History [Mylanta Maximum Strength Pkt] Oxybutynin Chloride [Oxybutynin 10 mg PO DAILY 09/29/21 09/29/21 History Chloride ER] Height: 1.6 m Weight: 51.392 kg Laboratory Results:: Laboratory Results - last 24 hr 09/29/21 21:20: Urine Color Yellow, Urine Appearance Clear, Urine pH 8.0, Ur Specific [place] 1.015, Urine Protein Trace, Urine Glucose (UA) Negative, Urine Ketones Negative, Urine Blood 2+, Urine Nitrate Negative, Urine Bilirubin Negative, Urine Urobilinogen 0.2, Ur Leukocyte Esterase 1+ A, Urine RBC 50-100, Urine WBC 20-50, Ur Squamous Epith Cells 3-5, Urine Bacteria 1+ 10/02/21 11:45: Gentamicin Trough 3.1 H* 10/02/21 11:45: APTT 34.3 H 10/02/21 18:01: APTT 44.3 H 10/03/21 00:14: APTT 35.2 H 10/03/21 05:33: WBC 14.8 H, RBC 2.87 L, Hgb 8.1 L, Hct 26.6 L, MCV 92.6, MCH 28.3, MCHC 30.5 L, RDW 14.7, Plt Count 335, MPV 7.9, Neut % (Auto) 87.2 H, Lymph % (Auto) 6.0 L, [place] % (Auto) 3.9, Eos % (Auto) 2.3, Baso % (Auto) 0.5, Neut # (Auto) 12.9 H, Lymph # (Auto) 0.9, [place] # (Auto) 0.6, Eos # (Auto) 0.3, Baso # (Auto) 0.1, Total Counted 100, Neutrophils % (Manual) 93 H, Lymphocytes % (Manual) 3 L, Monocytes % (Manual) 2, Eosinophils % (Manual) 2, Platelet Estimate Normal, RBC Morphology Normal 10/03/21 05:33: Sodium 136, Potassium 4.1, Chloride 110 H, Carbon Dioxide 21 L, Anion Gap 9.1, BUN 13, Creatinine 1.10, Estimated Creat Clear 43, Estimated GFR 66, Est GFR ( Amer) 79, Glucose 93, Calcium 8.7 10/03/21 05:33: APTT 57.1 H* 10/03/21 07:52: Gentamicin Trough 1.1 10/03/21 07:52: Vancomycin Trough 5.7 Medical History: Reports:: Hyperlipidemia, Hypertension, Kidney Stones, Transient Ischemic Attacks (TIA) Denies:: Cancer, Diabetes Mellitus Type 1, Diabetes Mellitus Type 2, MRSA 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 Medical Code(s): E87.6 - Hypokalemia (5) SIRS (systemic inflammatory response syndrome) Status: Resolved Category: Medical Code(s): R65.10 - Systemic inflammatory response syndrome (SIRS) of non-infectious origin without acute organ dysfunction (6) UTI (urinary tract infection) Status: Acute Qualifiers: Urinary tract infection type: site unspecified Hematuria presence: without hematuria Qualified Code(s): N39.0 - Urinary tract infection, site not specified Category: Medical Code(s): N39.0 - Urinary tract infection, site not specified - Assessment and plan all Dx Assessment and Plan for all problems:: PATIENT'S GENTAMICIN LEVEL WAS 1.1 MCG/ML THIS AM. RECOMMEND HOLDING UNTIL 1300 THIS AFTERNOON BEFORE RESTARTING GENTAMICIN 28O MG Q36H. PATIENT RECEIVED 2 DOSES OF GENTAMICIN 280 MG Q24H PRIOR TO THIS DOSE. DOSE WAS HELD OVER FROM YESTERDAY TO RE
--- NOTE | 2021-10-03 12:10 | CT_ITS ---
FINAL REPORT CLINICAL HISTORY: STROKE PROTOCOL COMPARISON: 10/01/2021 FINDINGS: Axial images of the head were obtained without contrast. Coronal reformatted images were also obtained.This study was performed with techniques to keep radiation doses as low as reasonably achievable (ALARA). Individualized dose reduction techniques using automated exposure control or adjustment of mA and/or kV according to the patient''s size were employed. There is a new, 3.6 cm left occipital lobe hematoma with surrounding edema. The ventricular size is within normal limits. There is no evidence of shift of the midline structures. No abnormal extra axial fluid collection is identified. No skull abnormality is seen on the bone window images. There is total opacification of the left maxillary sinus. IMPRESSION: New, 3.6 cm left occipital lobe hematoma with surrounding edema. Reviewed, Interpreted and Dictated by Minesh Chadwick III, MD Transcribed by Gabi Singer Authenticated by Minesh Chadwick III, MD on 10/03/2021 12:31:26 PM [facility]
[2021-10-03 12:29] LABS: POC Glucose,Bedside 97 (70-110)
--- NOTE | 2021-10-03 12:57 | PC.NURSE ---
reported ct findings to dr myers at 1240 and spoke with cathlab at 1243 about results. and at 1250 dr myers stated to order 10mg of iv protamine.
--- NOTE | 2021-10-03 13:05 | PC.NURSE ---
Dr. Munguia at bedside speaking with family.
--- NOTE | 2021-10-03 13:23 | HMH.ACPN2 ---
Internal Medicine - PN: Subj *Date: 10/03/21 *Time: 13:23 Interval history: Nursing was notified by family of a sudden change in patient's condition. Patient had been alert, talkative, able to follow commands. Patient had become confused and unfocused with some irregular movements of the extremities. A stroke alert was called and the patient was taken to CT. Patient has a 3.6 cm hemorrhagic stroke in the left occipital lobe. Exam Vital signs and Labs for Last 24 Hours: Temp Pulse Resp BP Pulse Ox 98.1 F 88 18 154/86 H 98 10/03/21 08:00 10/03/21 08:00 10/03/21 08:00 10/03/21 08:00 10/03/21 08:00 Laboratory Results - last 24 hr 09/29/21 21:20: Urine Color Yellow, Urine Appearance Clear, Urine pH 8.0, Ur Specific [place] 1.015, Urine Protein Trace, Urine Glucose (UA) Negative, Urine Ketones Negative, Urine Blood 2+, Urine Nitrate Negative, Urine Bilirubin Negative, Urine Urobilinogen 0.2, Ur Leukocyte Esterase 1+ A, Urine RBC 50-100, Urine WBC 20-50, Ur Squamous Epith Cells 3-5, Urine Bacteria 1+ 10/02/21 18:01: APTT 44.3 H 10/03/21 00:14: APTT 35.2 H 10/03/21 05:33: WBC 14.8 H, RBC 2.87 L, Hgb 8.1 L, Hct 26.6 L, MCV 92.6, MCH 28.3, MCHC 30.5 L, RDW 14.7, Plt Count 335, MPV 7.9, Neut % (Auto) 87.2 H, Lymph % (Auto) 6.0 L, [place] % (Auto) 3.9, Eos % (Auto) 2.3, Baso % (Auto) 0.5, Neut # (Auto) 12.9 H, Lymph # (Auto) 0.9, [place] # (Auto) 0.6, Eos # (Auto) 0.3, Baso # (Auto) 0.1, Total Counted 100, Neutrophils % (Manual) 93 H, Lymphocytes % (Manual) 3 L, Monocytes % (Manual) 2, Eosinophils % (Manual) 2, Platelet Estimate Normal, RBC Morphology Normal 10/03/21 05:33: Sodium 136, Potassium 4.1, Chloride 110 H, Carbon Dioxide 21 L, Anion Gap 9.1, BUN 13, Creatinine 1.10, Estimated Creat Clear 43, Estimated GFR 66, Est GFR ( Amer) 79, Glucose 93, Calcium 8.7 10/03/21 05:33: APTT 57.1 H* 10/03/21 07:52: Gentamicin Trough 1.1 10/03/21 07:52: Vancomycin Trough 5.7 10/03/21 12:03: POC Glucose 97 I & O for Last 24 hours: Intake & Output 10/01/21 10/02/21 10/03/21 10/04/21 11:59 11:59 11:59 11:59 Intake Total 120 / 120 540 / 540 120 / 120 Output Total 400 / 400 425 / 425 250 / 250 Balance -280 / -280 115 / 115 -130 / -130 Weight 113 lb 4.8 oz 113 lb 4.799 oz Microbiology Reports for the Last 24 Hours: Microbiology 09/29/21 20:21 Blood Blood Culture - Preliminary Yeast 09/29/21 21:20 Urine,Clean Catch Urine Culture - Preliminary Gram Negative Rods Narrative: Patient systolic blood pressure is in the 150s to 160s. Lungs remain clear. Heart has a regular rate and rhythm. Neurologically patient's gaze is unfocused. Patient is in constant motion in the bed with no purposeful movements however of the arms and legs and he is unable to follow directions. He does not respond to vocal or tactile stimulus. 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 Medical Code(s): E87.6 - Hypokalemia (5) SIRS (systemic inflammatory response syndrome) Status: Resolved Category: Medical Code(s): R65.10 - Systemic inflammatory response syndrome (SIRS) of non-infectious origin without acute organ dysfunction (6) UTI (urinary tract infection) Status: Acute Qualifiers: Urinary tract infection type: site unspecified Hematuria presence: without hematuria Qualified Code(s): N39.0 - Urinary tract infection, site not specified Category: Medical Code(s): N39.0 - Urinary tract infection, site not specified (7) Hemorrhagic stroke Status: Acute Category:
--- NOTE | 2021-10-03 13:41 | XR_ITS ---
FINAL REPORT CLINICAL HISTORY: ET TUBE PLACEMENT COMPARISON: September 29, 2021 FINDINGS: SINGLE VIEW CHEST. The left costophrenic angle is incompletely imaged. The heart is normal in size. An endotracheal tube is present with the tip 2 cm from the alphonso. A nasogastric tube is present with the tip in the fundus. The mediastinum is unremarkable. The lungs are clear. There is no pneumothorax. IMPRESSION: Endotracheal tube present with tip 2 cm from the alphonso. Reviewed, Interpreted and Dictated by Minesh Chadwick III, MD Transcribed by Rena Levy Authenticated by Minesh Chadwick III, MD on 10/03/2021 02:05:56 PM [facility]
--- NOTE | 2021-10-03 14:11 | HMH.PULMCON ---
*Admission Date: 09/30/21 *Reason for consult:: Acute hemorrhagic stroke *History of present illness: Patient intubated, much of history obtained from chart review and treating physician. Mr. Ivory is 71-year-old male presented to the hospital with weakness and found to be having embolic ischemic stroke along with atrial mass, initiated on heparin for his ischemic stroke was found to have worsening weakness this morning that prompted a CT head that showed moderate she can worsen eventually needing intubation mechanical ventilator support and pulmonary was called for further management. [facility] History Medical History: Reports:: Hyperlipidemia, Hypertension, Kidney Stones, Transient Ischemic Attacks (TIA) Denies:: Cancer, Diabetes Mellitus Type 1, Diabetes Mellitus Type 2, MRSA *Have you ever received a pneumonia vaccine?: Yes *Have you received a flu vaccine this season?: Yes Other Medical History: Reports: Arthritis, Thyroid Disease Other Surgeries: Yes: Colonoscopy, Hernia Repair, Ureter Stent, Other Amputation: No Fractures: No - *Social History Smoking Status: Never smoker Tobacco Type: smokeless tobacco Alcohol Intake: never Substance Use Type: denies use *Occupational Status:: retired Household Members: spouse *Travel in the last 8 weeks: None Family Hx:: Heart Attack ROS - Review of Systems Review of systems:: unable to obtain Intubated and sedated Meds Home Medications Medication Instructions Recorded Confirmed Type aspirin 81 mg tablet,delayed 81 mg PO DAILY tab 10/20/17 09/29/21 History release fenofibrate nanocrystallized 145 145 mg PO DAILY tab 10/20/17 09/29/21 History mg tablet meloxicam 15 mg tablet 15 mg PO DAILY tab 10/20/17 09/29/21 History levothyroxine 88 mcg tablet 88 mcg PO DAILY tab 08/06/20 09/29/21 History Benazepril HCl [Lotensin] 10 mg PO DAILY 09/29/21 09/29/21 History Mag Hydrox/Aluminum Hyd/Simeth 10 ml PO DAILYP PRN 09/29/21 09/29/21 History [Mylanta Maximum Strength Pkt] Oxybutynin Chloride [Oxybutynin 10 mg PO DAILY 09/29/21 09/29/21 History Chloride ER] Allergies Allergy/AdvReac Type Severity Reaction Status Date / Time Sulfa (Sulfonamide Allergy Unknown Verified 06/25/21 13:25 Antibiotics) Exam - Constitutional Constitutional:: Present: no acute distress, comfortable - HENMT Exam HENMT: Present: normocephalic - Eye Exam Eyes:: Present: normal appearance both eyes and related structures - Neck Exam Neck:: Present: normal visual inspection - Respiratory Exam Respiratory:: Present: no respiratory distress. Absent: crackles, wheezing - Cardiovascular Exam Cardiac:: Present: S1, S2 - GI Exam GI:: Present: soft - Neurological Exam Neurological: Absent: alert, awake, normal cognition - Extremities Exam Extremities: Absent: no edema Internal Medicine - CN: Reslt - Labs CBC & Chem 7: 10/03/21 05:33 10/03/21 05:33 Labs: Short CBC 10/03/21 Range/Units 05:33 WBC 14.8 H (4.8-10.8) K/mm3 Hgb 8.1 L (14.1-18.0) g/dL Hct 26.6 L (42.0-52.0) % Plt Count 335 (142-424) K/mm3 BMP 10/03/21 05:33 Sodium 136 Potassium 4.1 Chloride 110 H Carbon Dioxide 21 L BUN 13 Creatinine 1.10 Glucose 93 Calcium 8.7 Urine 09/29/21 Range/Units 21:20 Urine Color Yellow (Yellow) Urine Appearance Clear (Clear) Urine pH 8.0 (5.0-8.5) Ur Specific [place] 1.015 (1.005-1.030) Urine Protein Trace (Negative) Urine Glucose (UA) Negative (Negative) 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
[2021-10-03 14:26] LABS: Microscopic, Urine URINE MICROSCOPIC (MICROSCOPIC)
[2021-10-03 14:46] LABS: Appearance,Urine CLOUDY (Clear); Bilirubin,Urine Negative (Negative); Blood, Urine 3+ (Negative); Color,Urine YELLOW (Yellow); Glucose,Urine (UA) Negative (Negative); Ketones,Urine Negative (Negative); Leukocyte Esterase,Urine 2+ (Negative); Nitrate,Urine Negative (Negative); Protein,Urine 1+ (Negative); Specific Gravity, Urine 1.015 (1.005-1.030); Urobilinogen,Urine 0.2 EU/dl (0.2)
--- NOTE | 2021-10-03 14:46 | PC.NURSE ---
1148: Family came out to the nurses station stating pt. was not acting like himself. Upon entering the room, pt was thrashing around in the bed and was having difficulty finding words. Pt. stated repeatedly I need to pee but he had already urinated in the bed. Had pt molded frames assembler both of my hands and he was able to do so equally. When asked what was wrong he could not answer and he continued moving around the bed. I called Jackeline Overton RN into the room and paged Dr. Munguia and Dr. Vasquez regarding pt new onset alerted mental status and erratic behavior. Unable to obtain blood pressure due to patient movement. O2 sat was 100%. Blood sugar was 97. 1158: Stroke alert called. Pt. transported to CT. 1215: Pt. arrived back to floor. Dr. Munguia and Pedro updated. 1235: CT report read, Heparin infusion stopped due to hemorrhagic stroke on CT. 1300: Protamine 10 mg IV administered x1 per . 1305: Dr. Munguia at bedside talking with family. 1320: BP 167/102, labetalol 20 mg ordered IV now for BP. 1330: Repeat BP 133/80 1335: Pt. moved to ICU status, room 216, Report given to Jose Duque RN.
[2021-10-03 14:58] LABS: ABG Base Excess -6.9 mmol/L (-2.4-2.3); ABG Oxygen Saturation 100 % (90-100); ABG PH 7.52 mmol/L (7.35-7.45); ABG TCO2 16.6 mmhg (23-27)
[2021-10-03 15:01] LABS: Allen's Test Patient Unable; Oxygen 60 %; PEEP 5; Source Right Radial; Tidal Volume 440; Vent Rate 26
[2021-10-03 15:41] LABS: Bacteria,Urine Trace /lpf; RBC,Urine 20-50 #/hpf (0-3)
--- NOTE | 2021-10-03 16:00 | CT_ITS ---
FINAL REPORT CLINICAL HISTORY: left occipital lobe bleed, progress study COMPARISON: Exam performed earlier today FINDINGS: Axial images of the head were obtained without contrast. Coronal reformatted images were also obtained.This study was performed with techniques to keep radiation doses as low as reasonably achievable (ALARA). Individualized dose reduction techniques using automated exposure control or adjustment of mA and/or kV according to the patient''s size were employed. Again seen is a left occipital lobe hematoma now measuring 3.7 cm, previously measuring 3.6 cm. Moderate surrounding edema has somewhat increased. Suspected small hemorrhage is seen in the right frontal convexity measuring 7 mm which may be new or obscured by motion artifact on prior exam. The ventricular size is within normal limits. There is no evidence of shift of the midline structures. No abnormal extra axial fluid collection is identified. No skull abnormality is seen on the bone window images. There is total opacification of the left maxillary sinus. IMPRESSION: Stable, left occipital lobe hematoma with increased, moderate surrounding edema. Suspected small hemorrhage in the right frontal convexity measuring 7 mm which may be new or obscured by motion artifact on prior exam. Reviewed, Interpreted and Dictated by Minesh Chadwick III, MD Transcribed by Gabi Singer Authenticated by Minesh Chadwick III, MD on 10/03/2021 04:47:06 PM [facility]
[2021-10-03 22:08] LABS: POC Glucose,Bedside 93 (70-110)
[2021-10-04] VITALS (46 sets, daily range): BP systolic 86–114; BP diastolic 60–79; PULSE 70–90; RESP 24; TEMP 36.6–37.9; O2SAT 30–100; BMI 20.2
--- NOTE | 2021-10-04 05:21 | PC.NURSE ---
Pt has remained stable t/o night. No significant changes noted. Neuro checks performed q1 hr. Pt wihtdraws to pain at times. Has not opened eyes. PERRLA. Pt remains sedated. Propfol is infusing @ 50 mcg/kg/min. Fentanyl @ 25 mcg/hr. VS currently stable. Pt is NSR with periods of bigeminy. F/C draining to bedside. Total urine output 135 cc. Pt has tolerated vent. Vent settings are as follows: FiO2 30%, R 24, TV 440 PEEP 5. Updated family on phone. They will be in to visit this AM.
[2021-10-04 06:49] LABS: Anion Gap 12.5 mEq/L (5-15); Blood Urea Nitrogen 15 mg/dl (9-20); Calcium 8.4 mg/dl (8.4-10.2); Carbon Dioxide 15 mmol/L (22.0-30.0); Chloride 114 mmol/L (98-107); Creatinine Clearance Estimated 40 mL/min (50-200); Estimated Glomerular Filt Rate 59 ml/min (>60); GFR (African American) 72 ML/MIN (>60); Glucose 91 mg/dl (74-100); Potassium 4.5 mmoL/L (3.5-5.1); Sodium 137 mmol/L (136-145)
[2021-10-04 06:50] LABS: Basophils # 0.1 K/mm3 (0-0.2); Basophils % 0.5 % (0.1-2.0); Eosinophils % 0.2 % (0.1-12.0); Hematocrit 49.4 % (42.0-52.0); Hemoglobin 15.2 g/dL (14.1-18.0); Lymphocytes # 1.1 K/mm3 (0.7-4.5); Lymphocytes % 6.6 % (10-50); Mean Corpuscular HGB Conc 30.8 g/dL (31.8-35.4); Mean Corpuscular Hemoglobin 28.5 pg (27.0-31.2); Mean Corpuscular Volume 92.8 fl (80-94); Mean Platelet Volume 8.7 fl (7.4-10.4); Monocytes # 0.8 K/mm3 (0.1-1.0); Monocytes % 4.7 % (1.7-9.3); Neutrophils # 14.4 K/mm3 (1.8-7.8); Neutrophils % 88.1 % (37.0-80.0); Platelet Count 150 K/mm3 (142-424); Red Blood Count 5.33 M/mm3 (4.60-6.20); Red Cell Distribution Width 14.4 % (11.5-17.5); White Blood Count 16.3 K/mm3 (4.8-10.8)
[2021-10-04 06:53] LABS: MANUAL DIFFERENTIAL MANUAL DIFFERENTIAL (MANUAL DIFF)
--- NOTE | 2021-10-04 07:00 | XR_ITS ---
FINAL REPORT CLINICAL HISTORY: ETT and NG placement COMPARISON: October 03, 2021 FINDINGS: A single portable view of the chest was obtained. The ETT terminates 2 cm superior to the alphonso. The NG tube is coiled in the stomach with the tip in the antrum. The heart size and pulmonary vascularity are within normal limits. The mediastinum is within normal limits. There are new left base opacities favoring atelectasis over pneumonia. There is degenerative change of the bilateral shoulders. IMPRESSION: ET and NG tubes as above. New left base opacities favoring atelectasis over pneumonia. Reviewed, Interpreted and Dictated by Minesh Chadwick III, MD Transcribed by Carlota Mansfield Authenticated by Minesh Chadwick III, MD on 10/04/2021 09:53:[address] [facility]
--- NOTE | 2021-10-04 07:37 | HMH.ACPN2 ---
Internal Medicine - PN: Subj *Date: 10/04/21 *Time: 07:37 Interval history: No acute events overnight. Patient's blood pressure did decline slightly this morning with map of 68. Sedation has been turned down. No seizure-like activity has been seen. Nurse did report questionable posturing. Exam Vital signs and Labs for Last 24 Hours: Temp Pulse Resp BP Pulse Ox 97.8 F 73 24 93/71 L 100 10/04/21 03:00 10/04/21 06:45 10/04/21 06:45 10/04/21 06:45 10/04/21 06:45 Laboratory Results - last 24 hr 09/29/21 21:20: Urine Color Yellow, Urine Appearance Clear, Urine pH 8.0, Ur Specific [place] 1.015, Urine Protein Trace, Urine Glucose (UA) Negative, Urine Ketones Negative, Urine Blood 2+, Urine Nitrate Negative, Urine Bilirubin Negative, Urine Urobilinogen 0.2, Ur Leukocyte Esterase 1+ A, Urine RBC 50-100, Urine WBC 20-50, Ur Squamous Epith Cells 3-5, Urine Bacteria 1+ 10/03/21 07:52: Gentamicin Trough 1.1 10/03/21 07:52: Vancomycin Trough 5.7 10/03/21 12:03: POC Glucose 97 10/03/21 14:10: Urine Color Yellow, Urine Appearance Cloudy, Urine pH 7.0, Ur Specific [place] 1.015, Urine Protein 1+, Urine Glucose (UA) Negative, Urine Ketones Negative, Urine Blood 3+, Urine Nitrate Negative, Urine Bilirubin Negative, Urine Urobilinogen 0.2, Ur Leukocyte Esterase 2+ A, Urine RBC 20-50, Urine WBC 10-20, Ur Squamous Epith Cells 3-5, Urine Bacteria Trace 10/03/21 14:53: Specimen Source Right radial, O2 % 60, ABG pH 7.52 H, ABG pCO2 20.0 L, ABG pO2 262.0 H, ABG HCO3 16.0 L, ABG Total CO2 16.6 L, ABG O2 Saturation 100, ABG Base Excess -6.9 L, Teo Test Patient unable, Vent Rate 26, Tidal Volume 440, PEEP 5 10/03/21 20:10: POC Glucose 93 10/04/21 06:00: WBC 16.3 H, RBC 5.33 D, Hgb 15.2, Hct 49.4, MCV 92.8, MCH 28.5, MCHC 30.8 L, RDW 14.4, Plt Count 150 D, MPV 8.7, Neut % (Auto) 88.1 H, Lymph % (Auto) 6.6 L, [place] % (Auto) 4.7, Eos % (Auto) 0.2, Baso % (Auto) 0.5, Neut # (Auto) 14.4 H, Lymph # (Auto) 1.1, [place] # (Auto) 0.8, Eos # (Auto) 0.0, Baso # (Auto) 0.1 10/04/21 06:00: Sodium 137, Potassium 4.5, Chloride 114 H, Carbon Dioxide 15 L, Anion Gap 12.5, BUN 15, Creatinine 1.20, Estimated Creat Clear 40, Estimated GFR 59, Est GFR ( Amer) 72, Glucose 91, Calcium 8.4 I & O for Last 24 hours: Intake & Output 10/01/21 10/02/21 10/03/21 10/04/21 11:59 11:59 11:59 11:59 Intake Total 120 / 120 540 / 540 120 / 120 4115 / 4115 Output Total 400 / 400 425 / 425 250 / 250 400 / 400 Balance -280 / -280 115 / 115 -130 / -130 3715 / 3715 Weight 113 lb 4.8 oz 113 lb 4.799 oz Microbiology Reports for the Last 24 Hours: Microbiology 10/02/21 07:57 Blood Blood Culture - Preliminary 10/03/21 13:50 Sputum - Endotracheal Tube Aspirate Gram Stain - Final 09/29/21 20:21 Blood Blood Culture - Preliminary Yeast 09/29/21 21:20 Urine,Clean Catch Urine Culture - Preliminary Gram Negative Rods Narrative: Patient appears comfortable. He is breathing with the ventilator. Pupils are constricted but reactive. Neck is supple. Lungs are clear. Heart has a regular rate and rhythm. Abdomen is soft. Extremities are warm to the touch. He withdraws from tactile stimulus of the right leg only. 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
[2021-10-04 07:50] LABS: ABG Base Excess -10.2 mmol/L (-2.4-2.3); ABG HCO3 13.4 mmhg (22.0-26.0); ABG Oxygen Saturation 98 % (90-100); ABG PH 7.48 mmol/L (7.35-7.45); ABG PO2 116.1 mmhg (80-100)
[2021-10-04 07:51] LABS: Oxygen 30 %; Tidal Volume 440; Vent Rate 24
[2021-10-04 07:52] LABS: Allen's Test acceptable; PEEP 5
[2021-10-04 07:53] LABS: ABG PCO2 18.6 mmhg (35.0-45.0)
[2021-10-04 08:06] LABS: Lymphocytes % 7 % (10-50); Monocytes % 7 % (2-9); Neutrophils % 86 % (42-76); Total Cells Counted 100
[2021-10-04 08:07] LABS: Hypochromasia 1+; Platelet Estimate Normal
--- NOTE | 2021-10-04 10:09 | HMH.PULMPN ---
Internal Medicine - PN: Subj *Date: 10/04/21 *Time: 10:09 Interval history: No acute respiratory events overnight. Vent settings remain stable. Exam - Constitutional Constitutional:: Present: no acute distress - HENMT Exam HENMT: Present: normocephalic - Eye Exam Comment:: Pupils pinpoint equal Round and nonreactive - Neck Exam Neck:: Present: normal visual inspection - Respiratory Exam Respiratory:: Present: no respiratory distress. 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 Medical Code(s): E87.6 - Hypokalemia (5) SIRS (systemic inflammatory response syndrome) Status: Resolved Category: Medical Code(s): R65.10 - Systemic inflammatory response syndrome (SIRS) of non-infectious origin without acute organ dysfunction (6) UTI (urinary tract infection) Status: Acute Qualifiers: Urinary tract infection type: site unspecified Hematuria presence: without hematuria Qualified Code(s): N39.0 - Urinary tract infection, site not specified Category: Medical Code(s): N39.0 - Urinary tract infection, site not specified (7) Hemorrhagic stroke Status: Acute Category: Medical Code(s): I61.9 - Nontraumatic intracerebral hemorrhage, unspecified - Assessment and plan all Dx Assessment and Plan for all problems:: #Acute hemorrhagic stroke needing intubation and mechanical ventilatory support: 71-year-old man presented with weakness found to be having ischemic stroke along with 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 Repeat CT head within [address] head showed stable left occipital lobe hematoma with increasing surrounding edema. Patient received protamine sulfate. 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 Patient was intubated for airway protection. He did not have any respiratory distress on this hospital admission. He is saturating 100%. Auscultation clear breath sounds. Plan: Continue sedation propofol and fentanyl with RASS goal of 0-1 and CPAP goal of less than 2. Continue mechanical ventilatory support, currently on 440 of tidal volume, rate of 24 PEEP of 5 and 30% FiO2. Patient PCO2 18 this morning with a pH of 7.46. We will continue current settings. 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 Recommend to evaluate for fungal BLANKET WASHER infection and change his antifungal therapy for better BLANKET WASHER penetration. -Recommend to have a sodium goal greater than 135. -Recommend to have Tylenol every 6 as needed to avoid any febrile episodes. -Wolfgang
--- NOTE | 2021-10-04 10:34 | DIET.NUTRFU ---
RD spoke to nursing today to review overall status. Patient had left occipital hemorrhage and was intubated. Patient will remain on ventilator at this time. He is receiving sedation propofol and fentanyl, propofol is providing 40kcal/day. He is also receiving NaCl for hydration. Otherwise he will require TF to provide nutritional needs. Secondary to respiratory failure Pulmocare is appropriate formula, CBW is 51kg. Weight has fluctuated slightly during stay. He has increased need d/t skin breakdown. Nutritional needs are 1450kcal (28kcal/kg), 60-65gm protein (1.2-1.3gm/kcal) and fluid of 1500ml/day. Will provide minimal flushes well IVF is running. Start Pulmocare at 20ml/hr and increase to goal rate of 40ml/hr to provide 920ml/1380kcal/58gm protein and 722ml free water plus 50ml TID and with medpass, adjust flushes when IVF discontinued. Based on overall condition it may be beneficial to continue IVF until goal rate is met. Will review with nursing.
--- NOTE | 2021-10-04 16:24 | PC.WOUNDNOTE ---
From Am assessment
--- NOTE | 2021-10-04 17:44 | PC.NURSE ---
Addendum entered by Marta Pérez RN 10/04/21 17:47: notified of pt minimal urine outpt as well Original Note: notified Dr Munguia face to face that pt aerobic blood cultures are positive for Carlene Albicans (1700)
[2021-10-05] VITALS (19 sets, daily range): BP systolic 78–116; BP diastolic 48–83; PULSE 52–107; RESP 24; TEMP 36.4–36.8; O2SAT 100; BMI 20.2
--- NOTE | 2021-10-05 06:00 | XR_ITS ---
PROCEDURE INFORMATION: Exam: XR Chest Exam date and time: 10/05/2021 6:00 AM Age: 71 years old Clinical indication: Device placement; Ett placement (vent status); Additional info: Intubated patient TECHNIQUE: Imaging protocol: XR of the chest. Views: 1 view. COMPARISON: CR XR CHEST PORTABLE 10/04/2021 7:24 AM FINDINGS: Tubes, catheters and devices: There has been placement of an endotracheal tube with its tip 3.5 cm above the alphonso. A nasogastric tube is noted with its tip curled in the stomach. Lungs: Limited inspiration. Ill-defined area of increased density at the left lung base which could represent focal atelectasis or infiltrate. Pleural spaces: Unremarkable. No pleural effusion. No pneumothorax. Heart/Mediastinum: Mild cardiomegaly, likely accentuated by AP technique. The superior mediastinum is not widened. Bones/joints: Unremarkable. IMPRESSION: 1. Endotracheal tube and nasogastric tube are in good position. 2. There is an area of increased density at the left lung base which could represent a focus of atelectasis or infiltrate. Right lung field is clear. 3. Mild cardiomegaly, likely accentuated by AP technique. No evidence of pulmonary vascular congestion.
--- NOTE | 2021-10-05 06:19 | PC.NURSE ---
due to technical issues with fax machines on night watch end order for 1L NS IV bolus for hypotension never entered into mar, but bolus is being given at this time
[2021-10-05 07:27] LABS: Basophils % 0.1 % (0.1-2.0); Eosinophils # 0.1 K/mm3 (0.0-0.4); Eosinophils % 0.4 % (0.1-12.0); Hematocrit 27.1 % (42.0-52.0); Hemoglobin 8.2 g/dL (14.1-18.0); Lymphocytes # 1.2 K/mm3 (0.7-4.5); Mean Corpuscular HGB Conc 30.2 g/dL (31.8-35.4); Mean Corpuscular Hemoglobin 28.3 pg (27.0-31.2); Mean Corpuscular Volume 93.7 fl (80-94); Mean Platelet Volume 8.3 fl (7.4-10.4); Monocytes # 0.8 K/mm3 (0.1-1.0); Monocytes % 3.7 % (1.7-9.3); Neutrophils # 17.9 K/mm3 (1.8-7.8); Neutrophils % 89.8 % (37.0-80.0); Platelet Count 292 K/mm3 (142-424); Red Cell Distribution Width 14.6 % (11.5-17.5)
[2021-10-05 07:29] LABS: MANUAL DIFFERENTIAL MANUAL DIFFERENTIAL (MANUAL DIFF)
[2021-10-05 07:42] LABS: ABG Base Excess -13.8 mmol/L (-2.4-2.3); ABG HCO3 10.4 mmhg (22.0-26.0); ABG Oxygen Saturation 99 % (90-100); ABG PH 7.44 mmol/L (7.35-7.45); ABG PO2 133.6 mmhg (80-100); ABG TCO2 10.9 mmhg (23-27)
[2021-10-05 07:45] LABS: Oxygen 30% %; PEEP 5; Tidal Volume 440; Vent Rate 24
[2021-10-05 07:46] LABS: ABG PCO2 15.7 mmhg (35.0-45.0); Allen's Test acceptable
--- NOTE | 2021-10-05 07:49 | PC.NURSE ---
received call from RT (Petra Acuna) reporting pCO2 15.7. Dr. Sanabria is aware.
[2021-10-05 08:15] LABS: Blood Urea Nitrogen 21 mg/dl (9-20); Calcium 7.9 mg/dl (8.4-10.2); Chloride 118 mmol/L (98-107); Creatinine Clearance Estimated 30 mL/min (50-200); Estimated Glomerular Filt Rate 43 ml/min (>60); GFR (African American) 52 ML/MIN (>60); Glucose 89 mg/dl (74-100); Sodium 137 mmol/L (136-145)
--- NOTE | 2021-10-05 08:17 | HMH.ACPN2 ---
Internal Medicine - PN: Subj *Date: 10/05/21 *Time: 09:43 Interval history: Patient is remained stable over the last 24 hours without any acute events. Blood pressure has decreased slightly this morning. Patient was given a 1 L bolus of normal saline. Blood pressure has improved transiently. Exam Vital signs and Labs for Last 24 Hours: Temp Pulse Resp BP Pulse Ox 97.5 F L 84 24 94/63 L 100 10/05/21 07:42 10/05/21 07:00 10/05/21 07:00 10/05/21 07:00 10/05/21 07:00 Laboratory Results - last 24 hr 10/05/21 06:00: Specimen Source l radial, O2 % 30%, ABG pH 7.44, ABG pCO2 15.7 L, ABG pO2 133.6 H, ABG HCO3 10.4 L, ABG Total CO2 10.9 L, ABG O2 Saturation 99, ABG Base Excess -13.8 L, Teo Test acceptable, Vent Rate 24, Tidal Volume 440, PEEP 5 10/05/21 07:14: WBC 20.0 H, RBC 2.90 L D, Hgb 8.2 L, Hct 27.1 L, MCV 93.7, MCH 28.3, MCHC 30.2 L, RDW 14.6, Plt Count 292 D, MPV 8.3, Neut % (Auto) 89.8 H, Lymph % (Auto) 6.0 L, [place] % (Auto) 3.7, Eos % (Auto) 0.4, Baso % (Auto) 0.1, Neut # (Auto) 17.9 H, Lymph # (Auto) 1.2, [place] # (Auto) 0.8, Eos # (Auto) 0.1, Baso # (Auto) 0.0 I & O for Last 24 hours: Intake & Output 10/02/21 10/03/21 10/04/21 10/05/21 11:59 11:59 11:59 11:59 Intake Total 540 / 540 120 / 120 4471 / 4471 2026 Output Total 425 / 425 250 / 250 445 / 445 555 / 555 Balance 115 / 115 -130 / -130 4026 / 4026 1472 / 1472 Weight 113 lb 4.799 oz 114 lb 9.6 oz 114 lb 1.6 oz Microbiology Reports for the Last 24 Hours: Microbiology 10/02/21 07:57 Blood Blood Culture - Preliminary 10/02/21 07:57 Blood Blood Culture - Preliminary 10/03/21 13:50 Sputum - Endotracheal Tube Aspirate Gram Stain - Final 10/03/21 13:50 Sputum - Endotracheal Tube Aspirate Sputum Culture - Preliminary 10/03/21 14:10 Urine,Clean Catch Urine Culture - Preliminary 09/29/21 20:21 Blood Blood Culture - Final NO GROWTH AFTER 5 DAYS 09/29/21 21:20 Urine,Clean Catch Urine Culture - Final Proteus mirabilis Narrative: Patient is sedated. Pupils are constricted to 3 mm but reactive to 2 mm. ET tube is in place. Neck is supple. Lungs are clear. Heart has a regular rate and rhythm. Abdomen is soft. Neurologically patient is sedated. No response to tactile stimulus in the lower extremities this morning compared to yesterday morning's exam. Patient did withdrawal to tactile stimulus overnight per nursing reports. 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 Medical Code(s): E87.6 - Hypokalemia (5) SIRS (systemic inflammatory response syndrome) Status: Resolved Category: Medical Code(s): R65.10 - Systemic inflammatory response syndrome (SIRS) of non-infectious origin without acute organ dysfunction (6) UTI (urinary tract infection) Status: Acute Qualifiers: Urinary tract infection type: site unspecified Hematuria presence: without hematuria Qualified Code(s): N39.0 - Urinary tract infection, site not specified Category: Medical Code(s): N39.0 - Urinary tract infection, site not specified (7) Hemorrhagic stroke Status: Acute Category: Medical Code(s): I61.9 - Nontraumatic intracerebral hemorrhage, unspecified (8) Left atrial mass Status: Acute Category: Medical Code(s): I51.89 - Other ill-defined heart diseases (9) Fungemia Status: Acute Category: Medical Code(s): B49 - Unspecified mycosis (10) Proteus infection Status: Acute Category: Medical Code(s): A49.8 - Other bacterial infections of unspecified site
[2021-10-05 08:22] LABS: Carbon Dioxide 10 mmol/L (22.0-30.0)
--- NOTE | 2021-10-05 08:22 | PC.NURSE ---
received call from lab reporting CO2 10. Name and verified. Dr. Munguia rounding and is aware. Dr. Sanabria is aware as well.
--- NOTE | 2021-10-05 08:35 | PC.NURSE ---
BP 80/54. Levo gtt started @ 6mcg/min
--- NOTE | 2021-10-05 09:49 | XR_ITS ---
PROCEDURE INFORMATION: Exam: XR Chest Exam date and time: 10/05/2021 9:49 AM Age: 71 years old Clinical indication: Device placement; Ett placement (vent status); Additional info: Line placement TECHNIQUE: Imaging protocol: XR of the chest. Views: 1 view. COMPARISON: CR XR CHEST PORTABLE 10/05/2021 3:24 AM FINDINGS: Tubes, catheters and devices: Endotracheal tube, feeding tube, central venous catheter. The endotracheal tube terminates 2.5 cm above the alphonso. Lungs: Interstitial prominence and left basilar airspace disease. Pleural spaces: No pneumothorax. Small left pleural effusion. Heart/Mediastinum: Cardiac silhouette upper limits of normal in size. Vasculature: Ectasia of the thoracic aorta. Diaphragm: Asymmetric elevation of the right hemidiaphragm. Bones/joints: Degenerative change. Other findings: Poorly defined 5 mm nodular density overlying the right 5th posterior rib. IMPRESSION: 1. Endotracheal tube, feeding tube, central venous catheter. The endotracheal tube terminates 2.5 cm above the alphonso. 2. Asymmetric left basilar airspace/pleural disease. 3. Additional findings as described above.
--- NOTE | 2021-10-05 09:57 | P.OP_ITS ---
Date of procedure: 10/05/21 Pre-op Diagnosis:: Need for central IV access. Post-op Diagnosis:: Same. Procedure performed:: Left subclavian triple-lumen catheter. Surgeon:: Chicho Marshall MD SUPERVISOR GROWER:: Other Anesthesia: local Estimated blood loss (mL): 0 Operative findings:: All ports aspirated and flushed without difficulty. Operative note:: Patient proper identified. Consent obtained. Patient intubated through existing endotracheal tube or to procedure. Placed in the Trendelenburg position. Left chest was prepped and draped. Using Seldinger technique, left subclavian vein was cannulated. Guidewire was advanced through the introducer needle. Easily passed without difficulty. Small stab incision made. Dilated c lavipectoral fascia. Triple-lumen catheter advanced over the guidewire without resistance. Guidewire removed. All ports aspirated and flushed without difficulty. Post procedure chest x-ray requested. Condition: stable Disposition: floor Complications:: None.
[2021-10-05 10:27] LABS: Lymphocytes % 6 % (10-50); Monocytes % 7 % (2-9); Neutrophils % 87 % (42-76); Platelet Estimate Normal; Total Cells Counted 100
--- NOTE | 2021-10-05 11:12 | PC.NURSE ---
report called to [facility]. Spoke to Jan HILL. Pt going to [facility] 9th floor room 139. Unit phone [phone].
--- NOTE | 2021-10-05 12:03 | PC.NURSE ---
[facility] contacted for transport to . Dr. Munguia on the unit and is aware. @ BS and signed d/c paper. Helicopter is enroute to [facility].
--- NOTE | 2021-10-05 12:35 | PC.NURSE ---
[facility] arrival
--- NOTE | 2021-10-05 13:01 | PC.NURSE ---
pt has left with [facility]. Dr. Munguia and Dr. Sanabria are aware.
[2021-10-05 13:08] LABS: Vancomycin,Trough 23.2 ug/mL (5.0-10.0)
== END 2021-10-05 13:13 | disposition short-term general hospital (02) | DRG 64 ==
LOC: ER 22:22 → ICU 23:03 → 2ND 09-30 02:14 → ICU 09-30 11:05
PROVIDERS: Internal Medicine; Internal Medicine Pulmonary Disease; Physician Assistant; Admitting Provider Emergency Medicine; Emergency Provider Emergency Medicine; PCP Family Medicine; Visit Provider Family Medicine
DX: I63.10 Cerebral infarction due to embolism of unspecified precerebral artery (principal); I61.9 Nontraumatic intracerebral hemorrhage, unspecified; N39.0 Urinary tract infection, site not specified; N17.9 Acute kidney failure, unspecified; E46 Unspecified protein-calorie malnutrition; E87.6 Hypokalemia; E78.5 Hyperlipidemia, unspecified; I10 Essential (primary) hypertension; Z87.442 Personal history of urinary calculi; Z86.73 Personal history of transient ischemic attack (TIA), and cerebral infarction without residual deficits; E03.9 Hypothyroidism, unspecified; I05.9 Rheumatic mitral valve disease, unspecified; Z66 Do not resuscitate; Z68.20 Body mass index [BMI] 20.0-20.9, adult
CPT/HCPCS: 31500; 94002; 36556; 36415; 70450; 70496; 70553; 71045; 80048; 80053; 80170; 80202; 81001; 82803; 82962; 83010; 83605; 83735; 84145; 84436; 84443; 84484; 85007; 85025; 85651; 85730; 86140; 87040; 87070; 87077; 87086; 87088; 87186; 87205; 93005; 93306; 93880; 94003; 96365; 96367; 97110; 97116; 97162; 97166; 97530; 99285; A9576; C9803; J0696; J2704; J2720; J3370; Q9967; U0003; U0005